=== PATIENT | female | born 1945 | race Caucasian/White ===

== ENCOUNTER 2017-11-17 12:00 | Inpatient (IN) ==
[2017-11-17] MEDS ORDERED: Ipratropium/Albuterol Neb 3 ML IH ONE (12:22)
--- NOTE | 2017-11-17 12:24 | Emergency Department Note ---
Disposition Clinical Impression: Weakness, COPD (chronic obstructive pulmonary disease), Elevated troponin Disposition: Admitted As Inpatient Condition: Fair Time of Disposition: 14:30 General Adult HPI - General Chief complaint: ED Weakness Stated complaint: weakness Time Seen by Provider: 11/17/17 12:04 Source: patient Limitations: no limitations Nursing Notes Reviewed: Yes Vital Signs Reviewed: Yes - History of Present Illness HPI Narrative: Patient is a 72-year-old female with history of CVA, COPD, DVT, [place] presents to the emergency department via EMS With complaints of weakness and dyspnea on exertion which began this morning. She states that she was attempting to walk approximately 10 feet and felt so short of breath she was not able to make it. She states she has oxygen at home for use but does not use it and did not try it today. She admits to a fall a few days ago with significant bruising to her legs and back and is now complaining of right foot pain. She lives at home with her significant other who is not present She otherwise denies any fever, chills, chest pain, cough, nausea, vomiting, diarrhea, dysuria, hematuria, melena, abdominal pain. Pain Scale: 0 - Related Data Home Medications Medication Instructions Recorded Confirmed Amlodipine Besylate 2.5 mg PO DAILY 02/27/17 02/27/17 Atorvastatin [Lipitor] 40 mg PO HS 02/27/17 02/27/17 BuPROPion XL (24 HR) [Wellbutrin 150 mg PO DAILY 02/27/17 02/27/17 XL] Clopidogrel [Plavix] 75 mg PO DAILY 02/27/17 02/27/17 Donepezil HCl [Aricept] 5 mg PO HS 02/27/17 02/27/17 Furosemide [Lasix] 20 mg PO DAILY 02/27/17 02/27/17 HYDROcodone/Acet 5/325 mg [[place] 1 tab PO BID PRN 02/27/17 02/27/17 5-325 mg] Losartan Potassium [Cozaar] 100 mg PO DAILY 02/27/17 02/27/17 Metoprolol [Lopressor] 25 mg PO BID 02/27/17 02/27/17 Rivaroxaban [Xarelto] 20 mg PO HS 02/27/17 02/27/17 Allergies Allergy/AdvReac Type Severity Reaction Status Date / Time Penicillins [PCN] AdvReac See Verified 02/27/17 11:54 Comments Constitutional: Reports: weakness. Denies: fever, chills, weight change Eyes: Denies: vision change Cardiovascular: Reports: dyspnea on exertion. Denies: chest pain, palpitations , edema, syncope Respiratory: Reports: dyspnea. Denies: cough, wheezes, hemoptysis Gastrointestinal: Denies: abdominal pain, nausea, vomiting, diarrhea, constipation, melena Genitourinary: Denies: dysuria, hematuria Musculoskeletal: Reports: other (right foot pain) Integumentary: Reports: other (bruising on left hip and legs) Neurological: Reports: weakness. Denies: headache, numbness, paresthesias Endocrine: Reports: fatigue Past Medical History - Past Medical History Source: patient Medical history: Reports: CVA, DVT, hyperlipidemia, hypertension, myocardial infarction Surgical history: Reports: no surgical history Psychiatric history: Reports: no psych history - Social History Smoking Status: Current every day smoker Smokeless Tobacco Status: No Alcohol use: Reports: none Drug use: Reports: none Physical Exam She is awake and alert and able to speak in full sentences. Her pulse ox is 98 % on room air but when she rolls to her right side drops to 80%. - General Limitations: no limitations General appearance: alert, in no apparent distress - Head Head exam: atraumatic, normocephalic - Eye Eye exam: Present: normal appearance, EOMI - ENT ENT exam: normal exam, normal oropharynx, mucous membranes moist - Neck Neck exam: Present: normal inspection, full ROM, trachea midline - Chest Chest inspection: Present: normal inspection, symmetric chest wall rise - Expanded Respiratory Exam Location: wheezes: Right, Left, rhonchi: Left, Right, Upper, Lower (Personal) - Cardiovascular Cardiovascular exam: Present: irregular rhythm, normal heart sounds - Abdominal Exam Abdominal exam: Present: soft, Non-Tender. Absent: distention, guarding, rebound - Extremities Exam Extremities exam: Absent: pedal edema - Expanded Lower Extremity Exam Hip/Pelvis exam: Present: ecchymosis (Left posterior hip) Upper leg exam: Present: ecchymosis (Right medial thigh, 3 cm linear contusion) Foot/toe exam: Present: tenderness - Back Exam Back exam: Present: normal inspection. Absent: CVA tenderness (R), CVA tenderness (L) - Neurological Exam Neurological exam: Present: alert, oriented X3 - Psychiatric Psychiatric exam: Present: normal mood, other - Skin Skin exam: Present: warm, dry, intact (blunted affect) Course - Reevaluation(s) Time: 14:30 Vital Signs Temperature 98.2 F 11/17/17 12:05 Pulse Rate 56 11/17/17 12:05 Respiratory Rate 18 11/17/17 12:05 Blood Pressure 107/69 11/17/17 12:05 O2 Sat by Pulse Oximetry 96 11/17/17 12:05 Temperature 98.2 F 11/17/17 12:05 Pulse Rate 63 11/17/17 14:55 Respiratory Rate 18 11/17/17 14:55 Blood Pressure 116/97 11/17/17 14:55 O2 Sat by Pulse Oximetry 100 11/17/17 12:55 Oxygen Delivery Oxygen Delivery Room Air Medical Decision Making - MDM Narrative Medical decision making narrative: Vision significant medical history and being a poor historian due to CVA with residual dementia the patient will require significant workup. CBC CMP, troponin, chest x-ray, right foot x-ray, CT head UA will be ordered. This is likely an exacerbation of her COPD for which she may be an unreliable and noncompliant patient as she does not mitts at taking any medications. 1:10 PM: is her daughter and POA. She called and the see how her mom is doing. She states that she this sounds a lot like her previous. She has a lot of issues with degenerative joint disease in her neck and low back and often has pain control issues. I tort and seemed to be the issue today it seemed a more of a COPD exacerbation. She says it does not surprise her she is fairly noncompliant with her medications" looks like a chimney". She states that she was also has significant dementia with probable Alzheimer's periods they have had her on Namenda before now that at 3 Medications on top of all which are psychiatric meds. One includes valproic acid saga level of that along with checking LFTs and ammonia level. Daughter states she like to be called once every thing is back and she thought from that what we have described unless something is new that she will probably go to go home since physical therapy and home health care for her also. Chest X-Ray 11/17/17 12:22 IMPRESSION: No acute findings D/ / Heather Friedman MD / Heather Friedman MD Interpreting Provider: Heather Friedman MD Foot X-Ray 11/17/17 12:27 IMPRESSION: 1st MTP degenerative changes. D/ / Heather Friedman MD / Heather Friedman MD Interpreting Provider: Heather Friedman MD 1400 hrs.: No fracture on her foot x-ray shows some degenerative changes and also on chest x-rays negative. She did complain of some intermittent chest pains we did get a troponin at 0.04 but has no signs of ischemia. We will go head once her CT is back that negative we will start an aspirin and then we will bring her into the hospital. Impression is dementia chronic COPD and chest pain rule out ACS. Chest X-Ray 11/17/17 12:22 IMPRESSION: No acute findings D/ / Heather Friedman MD / Heather Friedman MD Interpreting Provider: Heather Friedman MD Head CT 11/17/17 12:22 IMPRESSION: No acute intracranial abnormality. D/ / Mark Sanchez MD / Mark Sanchez MD Interpreting Provider: Mark Sanchez MD Foot X-Ray 11/17/17 12:27 IMPRESSION: 1st MTP degenerative changes. D/ / Heather Friedman MD / Heather Friedman MD Interpreting Provider: Heather Friedman MD Patient's initial presentation of weakness and dyspnea on exertion was consistent with a COPD exacerbation. Patient's daughter states that this is her baseline and given her dementia she is unable to decipher any new changes. Given her unreliable history CBC, CMP, troponin, chest x-ray, CT head, UA were obtained. After discussion with the daughter valproic acid and acetaminophen were ordered. Chest x-ray was unremarkable. CMP significant for sodium 131 troponin 0.04. Valproate low at 38. She presentation seemed to be consistent with her baseline the elevated troponin made it necessary to admit the patient for trending and continued close care. Patient is admitted under Dr. Valadez. - Medical Records Medical records reviewed: Yes I reviewed the patient's medical records. - Lab Data Lab results reviewed: Yes I reviewed the patient's lab results. Result diagrams: 11/17/17 12:33 11/17/17 12:33 Lab Results 11/17/17 11/17/17 11/17/17 Range/Units 12:33 12:33 12:54 WBC 4.9 (4.3-11.1) K/mcL RBC 4.29 (3.82-4.97) M/mcL Hgb 13.6 (11.5-15.4) g/dL Hct 38.4 (35.3-44.9) % MCV 89.5 (83.0-100.0) fL MCH 31.7 (28.0-33.3) pg MCHC 35.4 (31.6-35.5) g/dL RDW 14.7 H (11.5-14.5) % Plt Count 187 (140-400) K/mcL MPV 11.8 (9.4-12.4) fL Immature Gran % 0.2 (0-4) % Seg Neutrophils % 66.5 % Lymphocytes % 22.9 % Monocytes % 8.6 % Eosinophils % 1.2 % Basophils % 0.6 % Neutrophils # 3.3 (1.6-8.9) K/mcL Lymphocytes # 1.1 (0.6-4.6) K/mcL Monocytes # 0.4 (0.0-1.3) K/mcL Eosinophils # 0.1 (0.0-0.6) K/mcL Basophils # 0.0 (0.0-0.2) K/mcL Sodium 131 L (136-145) mEq/L Potassium 4.0 (3.5-5.1) mEq/L Chloride 91 L (98-107) mEq/L Carbon Dioxide 31 H (23-29) mEq/L BUN 5 L (8-23) mg/dL Creatinine 0.75 (0.60-1.20) mg/dL Est GFR ( Amer) > 60 (> 60) Est GFR (Non-Af Amer) > 60 (> 60) BUN/Creatinine Ratio 7 (6-26) Glucose 84 (70-105) mg/dL Calculated Osmolality 268 L (280-300) Calcium 9.4 (8.6-10.3) mg/dL Total Bilirubin 0.5 (0.3-1.0) mg/dL Direct Bilirubin 0.2 (0.0-0.2) mg/dL Indirect Bilirubin 0.3 (0.0-1.2) mg/dL AST 25 (13-39) Units/L ALT 8 (7-52) Units/L Alkaline Phosphatase 100 (34-104) Units/L Ammonia (16-53) mcmol/L Troponin I 0.04 H* (< 0.04) ng/mL Serum Total Protein 7.1 (6.4-8.9) g/dL Albumin 3.9 (3.5-5.7) g/dL Globulin 3.2 (2.4-3.5) g/dL Albumin/Globulin Ratio 1.2 (1.1-2.2) Urine Color Yellow (Yellow) Urine Clarity Clear (Clear) Urine pH 6.5 (5.0-8.0) pH Units Ur Specific [place] 1.006 L (1.010-1.025) Urine Protein Negative (Neg-Trace) mg/dL Urine Glucose (UA) Normal (Normal) mg/dL Urine Ketones Negative (Negative) mg/dL Urine Blood Negative (Negative) Urine Nitrite Negative (Negative) Urine Bilirubin Negative (Negative) Urine Urobilinogen Normal (Normal) mg/dL Ur Leukocyte Esterase Negative (Negative) Ur Culture Indicated? NO (NO) Acetaminophen < 10 L (10-20) mcg/mL Valproic Acid 38 L (50-100) mcg/mL 11/17/17 Range/Units 13:19 WBC (4.3-11.1) K/mcL RBC (3.82-4.97) M/mcL Hgb (11.5-15.4) g/dL Hct (35.3-44.9) % MCV (83.0-100.0) fL MCH (28.0-33.3) pg MCHC (31.6-35.5) g/dL RDW (11.5-14.5) % Plt Count (140-400) K/mcL MPV (9.4-12.4) fL Immature Gran % (0-4) % Seg Neutrophils % % Lymphocytes % % Monocytes % % Eosinophils % % Basophils % % Neutrophils # (1.6-8.9) K/mcL Lymphocytes # (0.6-4.6) K/mcL Monocytes # (0.0-1.3) K/mcL Eosinophils # (0.0-0.6) K/mcL Basophils # (0.0-0.2) K/mcL Sodium (136-145) mEq/L Potassium (3.5-5.1) mEq/L Chloride (98-107) mEq/L Carbon Dioxide (23-29) mEq/L BUN (8-23) mg/dL Creatinine (0.60-1.20) mg/dL Est GFR ( Amer) (> 60) Est GFR (Non-Af Amer) (> 60) BUN/Creatinine Ratio (6-26) Glucose (70-105) mg/dL Calculated Osmolality (280-300) Calcium (8.6-10.3) mg/dL Total Bilirubin (0.3-1.0) mg/dL Direct Bilirubin (0.0-0.2) mg/dL Indirect Bilirubin (0.0-1.2) mg/dL AST (13-39) Units/L ALT (7-52) Units/L Alkaline Phosphatase (34-104) Units/L Ammonia 26 (16-53) mcmol/L Troponin I (< 0.04) ng/mL Serum Total Protein (6.4-8.9) g/dL Albumin (3.5-5.7) g/dL Globulin (2.4-3.5) g/dL Albumin/Globulin Ratio (1.1-2.2) Urine Color (Yellow) Urine Clarity (Clear) Urine pH (5.0-8.0) pH Units Ur Specific [place] (1.010-1.025) Urine Protein (Neg-Trace) mg/dL Urine Glucose (UA) (Normal) mg/dL Urine Ketones (Negative) mg/dL Urine Blood (Negative) Urine Nitrite (Negative) Urine Bilirubin (Negative) Urine Urobilinogen (Normal) mg/dL Ur Leukocyte Esterase (Negative) Ur Culture Indicated? (NO) Acetaminophen (10-20) mcg/mL Valproic Acid (50-100) mcg/mL - Radiology Data Radiology results reviewed: Yes I reviewed the patient's radiology results. Chest X-Ray 11/17/17 12:22 IMPRESSION: No acute findings D/ / Heather Friedman MD / Heather Friedman MD Interpreting Provider: Heather Friedman MD Head CT 11/17/17 12:22 IMPRESSION: No acute intracranial abnormality. D/ / Mark Sanchez MD / Mark Sanchez MD Interpreting Provider: Mark Sanchez MD Foot X-Ray 11/17/17 12:27 IMPRESSION: 1st MTP degenerative changes. D/ / Heather Friedman MD / Heather Friedman MD Interpreting Provider: Heatehr Friedman MD - EKG Data EKG #1 EKG attestation: Yes I reviewed and interpreted this EKG. EKG results narrative: Atrial fibrillation rate of 56. QRS 68. QTC 441. QTC 433. Normal axis. Inverted T waves in aVR, V1, V2. Attestation Statement - Attestation Attestation: This documentation is done with the assistance of Dragon dictation. Despite efforts made to ensure accuracy, there may be inaccuracies in billing services manager or spelling and typographical errors. I examined this patient and my medical decision-making was reviewed with the Resident Physician. I agree with the documented findings, disposition and treatment plan as described except to the extent set forth below. Patient seen and evaluated on arrival by Dr. Regalado and myself, I agree with her evaluation and management plan, supervise care the patient's stay. Patient comes from home from EMS she has been feeling weak was able to ambulate inside. She does have history of COPD. She had some bruising on her and she says that she is not on blood thinners but later we find out she is on several toe. She has had a couple falls. She also has pain in her right foot which when image CT her head x-ray were chest and she has as coarse respirations and cough. Most likely she will need admission. The family will, and we can get more history from them and we will involve social work instructor also. Patient's agreement with this plan.
[2017-11-17 13:13] LABS: Bilirubin,Urine Negative (Negative); Blood,Urine Negative (Negative); Clarity,Urine Clear (Clear); Color,Urine Yellow (Yellow); Glucose,Urine (UA) Normal (Normal); Ketones,Urine Negative (Negative); Leukocyte Esterase,Urine Negative (Negative); Nitrite,Urine Negative (Negative); PH,Urine 6.5 pH Units (5.0-8.0); Protein,Urine Negative (Neg-Trace); Specific Gravity,Urine 1.006 (1.010-1.025); Urobilinogen,Urine Normal (Normal)
[2017-11-17 13:14] LABS: Basophils % 0.6 %; Eosinophils # 0.1 K/mcL (0.0-0.6); Eosinophils % 1.2 %; Hematocrit 38.4 % (35.3-44.9); Hemoglobin 13.6 g/dL (11.5-15.4); Immature Granulocytes % 0.2 % (0-4); Lymphocytes # 1.1 K/mcL (0.6-4.6); Lymphocytes % 22.9 %; Mean Corpuscular HGB Conc 35.4 g/dL (31.6-35.5); Mean Corpuscular Hemoglobin 31.7 pg (28.0-33.3); Mean Corpuscular Volume 89.5 fL (83.0-100.0); Mean Platelet Volume 11.8 fL (9.4-12.4); Monocytes # 0.4 K/mcL (0.0-1.3); Monocytes % 8.6 %; Neutrophils # 3.3 K/mcL (1.6-8.9); Platelet Count 187 K/mcL (140-400); Red Blood Count 4.29 M/mcL (3.82-4.97); Red Cell Distribution Width 14.7 % (11.5-14.5); Segmented Neutrophils % 66.5 %
[2017-11-17 13:28] LABS: Troponin I 0.04 ng/mL (< 0.04)
[2017-11-17] MEDS ORDERED: Aspirin 81 MG TAB.CHEW PO STA (13:28)
[2017-11-17 13:42] LABS: Acetaminophen < 10 mcg/mL (10-20); Alanine Aminotransferase 8 Units/L (7-52); Albumin 3.9 g/dL (3.5-5.7); Albumin/Globulin Ratio 1.2 (1.1-2.2); Alkaline Phosphatase 100 Units/L (34-104); Aspartate Amino Transferase 25 Units/L (13-39); BUN/Creatinine Ratio 7 (6-26); Bilirubin,Direct 0.2 mg/dL (0.0-0.2); Bilirubin,Indirect 0.3 mg/dL (0.0-1.2); Bilirubin,Total 0.5 mg/dL (0.3-1.0); Blood Urea Nitrogen 5 mg/dL (8-23); Calcium 9.4 mg/dL (8.6-10.3); Carbon Dioxide 31 mEq/L (23-29); Chloride 91 mEq/L (98-107); Globulin 3.2 g/dL (2.4-3.5); Glucose 84 mg/dL (70-105); Osmolality,Calculated 268 (280-300); Sodium 131 mEq/L (136-145); Total Protein 7.1 g/dL (6.4-8.9); Valproate 38 mcg/mL (50-100); eGFR For African Americans > 60 (> 60); eGFR For Non-African Americans > 60 (> 60)
[2017-11-17] MEDS ORDERED: Aspirin 81 MG TAB.CHEW ONE (14:37)
[2017-11-17] MEDS: Aspirin 81 MG TAB.CHEW PO STA ×2 (17:08→17:19)
--- NOTE | 2017-11-17 17:23 | Internal Med History&Physical ---
Date of Encounter: 11/17/17 Time of Encounter: 17:23 Internal Medicine - H&P: HPI Chief complaint: Shortness of breath History of present illness: 72-year-old female with history of CVA, COPD, DVT, [place] presents to the emergency department via EMS With complaints of weakness and dyspnea on exertion which began this morning. She states that she was attempting to walk approximately 10 feet and felt so short of breath she was not able to make it. She states she has oxygen at home for use but does not use it and did not try it today. She admits to a fall a few days ago with significant bruising to her legs and back and is now complaining of right foot pain. She lives at home with her significant other who is not present She otherwise denies any fever, chills, chest pain, cough, nausea, vomiting, diarrhea, dysuria, hematuria, melena, abdominal pain. Past Med Surg Social Fam HX - Past Medical History Medical history: COPD, CVA, DVT, dementia, hyperlipidemia, hypertension, myocardial infarction Psychiatric history: no psych history - Past Surgical History Surgical History: no surgical history - Social History Smoking Status: Current every day smoker Packs per day: 1/2 Smokeless Tobacco Status: No Alcohol use: none Drug use: none Internal Medicine - H&P: Meds Amlodipine Besylate 2.5 mg PO DAILY 02/27/17 [History] Atorvastatin [Lipitor] 40 mg PO HS 02/27/17 [History] BuPROPion XL (24 HR) [Wellbutrin XL] 150 mg PO DAILY 02/27/17 [History] Clopidogrel [Plavix] 75 mg PO DAILY 02/27/17 [History] Donepezil HCl [Aricept] 5 mg PO HS 02/27/17 [History] Furosemide [Lasix] 20 mg PO DAILY 02/27/17 [History] HYDROcodone/Acet 5/325 mg [[place] 5-325 mg] 1 tab PO DAILY PRN 02/27/17 [History] Losartan Potassium [Cozaar] 100 mg PO DAILY 02/27/17 [History] Metoprolol [Lopressor] 25 mg PO BID 02/27/17 [History] Rivaroxaban [Xarelto] 20 mg PO HS 02/27/17 [History] Divalproex Sodium [Depakote] 125 mg PO BID 11/17/17 [History] Escitalopram [Lexapro] 10 mg PO DAILY 11/17/17 [History] Memantine [Namenda] 5 mg PO BID 11/17/17 [History] OLANZapine [Zyprexa] 5 mg PO DAILY 11/17/17 [History] Potassium Chloride [K-Tab ER] 20 meq PO DAILY 11/17/17 [History] 3 Allergy/AdvReac Type Severity Reaction Status Date / Time aspirin AdvReac See Verified 11/17/17 17:36 Comments Penicillins [PCN] AdvReac See Verified 02/27/17 11:54 Comments All Systems PM: A 10-system review of systems was performed and is negative for pertinent findings except as documented above in the HPI. - Constitutional Vitals: Temp Pulse Resp BP Pulse Ox 98.0 F 73 18 131/91 97 11/17/17 15:36 11/17/17 15:36 11/17/17 15:36 11/17/17 15:36 11/17/17 16:15 Internal Med - H&P Results - Labs CBC & Chem 7: 11/17/17 12:33 11/17/17 12:33 - Assessment and plan (1) Elevated troponin Current Visit: Yes Status: Acute (2) COPD (chronic obstructive pulmonary disease) Current Visit: Yes Status: Acute Assessment and plan: ASSESSMENT: - Chest pain DD *CAD *Muskuloskeletal CP - myofascial strain, costochondritis *GERD *Esophageal spasm PLAN: - cardiac enzymes x 2 q 8 hr - EKG now and in AM - ASA - O2 by NC to keep SpO2 greater than 92% - UA - Urine toxic screen - CBCD, BMP in AM - Fasting lipids - Tylenol 650 mg PO q 4-6 hr PRN headache - Heparin 5000 U SQ BID - 2D Echo - Cardiology consult (3) Hyponatremia Current Visit: Yes Status: Acute (4) DVT prophylaxis Current Visit: Yes Status: Acute - Time Spent With Patient Total time spent is greater than 50% in coordination of care (as documented) at patient's floor/unit and/or counseling patient:
[2017-11-17] MEDS ORDERED: *HR* HYDROcodone/Acet 5/325 mg TABLET PO PRN (17:24)
[2017-11-17] MEDS ORDERED: Acetaminophen 325 MG TABLET PO PRN (17:36)
[2017-11-17] MEDS ORDERED: Naloxone 0.4 MG/ML INJ IVP PRN (17:36)
[2017-11-17] MEDS ORDERED: traMADol 50 MG TABLET PO PRN (17:36)
[2017-11-17] MEDS ORDERED: *HR* OxyCODONE Immed Rel 5 MG TABLET PO PRN (17:36)
--- NOTE | 2017-11-17 17:52 | Electrocardiograph Report ---
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
[2017-11-17] MEDS: *HR* Rivaroxaban 10 MG TABLET PO SCH (20:27)
[2017-11-17] MEDS: Divalproex Sodium 125 MG CAPSULE PO SCH (20:27)
[2017-11-18 01:41] LABS: Prothrombin Time 33.9 Seconds (9.4-12.1)
[2017-11-18 01:44] LABS: Activated Partial Thrombo Time 38.5 Seconds (26.0-36.0)
[2017-11-18 01:55] LABS: Alanine Aminotransferase 7 Units/L (7-52); Albumin 3.2 g/dL (3.5-5.7); Albumin/Globulin Ratio 1.2 (1.1-2.2); Alkaline Phosphatase 79 Units/L (34-104); Aspartate Amino Transferase 22 Units/L (13-39); BUN/Creatinine Ratio 12 (6-26); Bilirubin,Total 0.5 mg/dL (0.3-1.0); Blood Urea Nitrogen 9 mg/dL (8-23); Carbon Dioxide 28 mEq/L (23-29); Chloride 94 mEq/L (98-107); Chol/HDL Ratio 2.5 (0-4.9); Cholesterol 109 mg/dL (< 200); Globulin 2.6 g/dL (2.4-3.5); Glucose 82 mg/dL (70-105); HDL Cholesterol 43 mg/dL (40-59); LDL Cholesterol,Calculated 45 mg/dL (0-99); Magnesium 1.8 mg/dL (1.6-2.6); Osmolality,Calculated 268 (280-300); Phosphorous 3.7 mg/dL (2.7-4.5); Potassium 3.6 mEq/L (3.5-5.1); Sodium 130 mEq/L (136-145); Total Protein 5.8 g/dL (6.4-8.9); Triglycerides 103 mg/dL (< 150); eGFR For African Americans > 60 (> 60); eGFR For Non-African Americans > 60 (> 60)
[2017-11-18 02:35] LABS: Hematocrit 33.4 % (35.3-44.9); Mean Corpuscular HGB Conc 34.4 g/dL (31.6-35.5); Mean Corpuscular Volume 87.2 fL (83.0-100.0); Mean Platelet Volume 11.6 fL (9.4-12.4); Platelet Count 162 K/mcL (140-400); Red Blood Count 3.83 M/mcL (3.82-4.97); Red Cell Distribution Width 14.8 % (11.5-14.5)
[2017-11-18 02:38] LABS: Hemoglobin 11.5 g/dL (11.5-15.4)
[2017-11-18] MEDS: Ipratropium/Albuterol Neb 3 ML IH SCH ×4 (08:12→19:40)
[2017-11-18] MEDS: Furosemide 20 MG TABLET PO SCH (09:54)
[2017-11-18] MEDS: Divalproex Sodium 125 MG CAPSULE PO SCH ×2 (09:54→21:26)
[2017-11-18] MEDS: OLANZapine 5 MG TAB.RAPDIS PO SCH (09:54)
--- NOTE | 2017-11-18 13:26 | Internal Med Progress Note ---
Date of Encounter: 11/18/17 Time of Encounter: 10:30 - Assessment and plan (1) Chest pain Current Visit: Yes Status: Acute Assessment and plan: Per H&P, patient had chest pain. Currently denies any chest pain. Troponins every day and awake and stable. Awaiting 2-D echocardiogram. Qualifiers: Chest pain type: precordial pain Qualified Code(s): R07.2 - Precordial pain (2) COPD (chronic obstructive pulmonary disease) Current Visit: Yes Status: Chronic Assessment and plan: Continue bronchodilators. O2 supplementation as needed. Qualifiers: COPD type: chronic bronchitis Chronic bronchitis type: simple Qualified Code(s): J41.0 - Simple chronic bronchitis (3) Elevated troponin Current Visit: Yes Status: Acute Assessment and plan: Mild elevation in troponin. Adynamic. Awaiting echocardiogram. (4) Hyponatremia Current Visit: Yes Status: Chronic Assessment and plan: Likely hypovolemic hyponatremia. No prior labs available here. Will start IV fluids. Monitor sodium levels. (5) DVT prophylaxis Current Visit: Yes Status: Acute Assessment and plan: Continue Xarelto (6) Constipation Current Visit: Yes Status: Acute Assessment and plan: Place patient on senna/docusate. Qualifiers: Constipation type: slow transit constipation Qualified Code(s): K59.01 - Slow transit constipation - Time Spent With Patient Total time spent is greater than 50% in coordination of care (as documented) at patient's floor/unit and/or counseling patient: - Subjective Interval history: Patient is lying in bed. Does have underlying dementia and is not troubled to provide much history. Denies any chest pain or shortness of breath at this time. Does report constipation. No abdominal pain. - Constitutional Vitals: Temp Pulse Resp BP Pulse Ox 97.8 F 69 16 99/57 99 11/18/17 10:35 11/18/17 10:35 11/18/17 11:07 11/18/17 10:35 11/18/17 11:07 General appearance: Present: cooperative, A&O X 1, answers questions appropriately - Neck Neck exam general surgery: Present: supple, trachea midline. Absent: lymphadenopathy - Respiratory Respiratory exam: Present: CTAB. Absent: accessory muscle use, rales, rhonchi, wheezes - Cardiovascular Cardiovascular exam: Present: RRR, +S1, +S2. Absent: diastolic murmur, gallop, rubs, systolic murmur - Extremities Exam Extremities exam: Present: warm, radial pulses palpable and symmetrical. Absent : calf tenderness, cyanotic, pedal edema Internal Medicine: Result - Labs CBC & Chem 7: 11/18/17 02:11 11/18/17 00:42 Labs: Short CBC 11/18/17 Range/Units 02:11 WBC 4.8 (4.3-11.1) K/mcL Hgb 11.5 D (11.5-15.4) g/dL Hct 33.4 L (35.3-44.9) % Plt Count 162 (140-400) K/mcL BMP 11/18/17 00:42 Sodium 130 L Potassium 3.6 Chloride 94 L Carbon Dioxide 28 BUN 9 Creatinine 0.76 Glucose 82 Calcium 9.0 Cardiac Enzymes 11/17/17 11/18/17 11/18/17 Range/Units 18:21 00:42 02:11 Troponin I 0.04 H* 0.04 H* 0.04 H* (< 0.04) ng/mL 11/18/17 Range/Units 08:08 Troponin I 0.04 H* (< 0.04) ng/mL Liver Function 11/18/17 Range/Units 00:42 Total Bilirubin 0.5 (0.3-1.0) mg/dL AST 22 (13-39) Units/L ALT 7 (7-52) Units/L Alkaline Phosphatase 79 (34-104) Units/L Albumin 3.2 L (3.5-5.7) g/dL - ABG Interpretation ABG results: PT/INR, D-dimer PT 33.9 Seconds (9.4-12.1) H 11/18/17 00:42 Consult Discharge Plan - Plan Referrals: Allyson Bernstein MD [Primary Care Provider] -
--- NOTE | 2017-11-18 14:19 | Cardiology Consult Note ---
Date of Encounter: 11/18/17 Time of Encounter: 15:45 Assessment and Plan (1) Chest pain Current Visit: Yes Status: Acute Currently denies any chest pain and is unable to provide any history of her episodes of chest pain. Low-level adynamic troponin of 0.04. Consider noninvasive risk stratification. We will attempt to discuss further with family members when present Qualifiers: Chest pain type: precordial pain Qualified Code(s): R07.2 - Precordial pain (2) Elevated troponin Current Visit: Yes Status: Acute Borderline elevated noninvasive risk stratification likely recommended especially in the setting of a poor historian (3) Abnormal EKG Current Visit: Yes Status: Acute Possible irregular irregular rhythm noted on EKG. Possibly coarse atrial fibrillation as some P waves are evident however there is artifact on EKG. We will monitor telemetry and follow-up with serial EKGs during hospital stay. Patient currently on Plavix possibly for peripheral artery disease as per patient. Her recent fall and dementia may pose a risk for bleeding on anticoagulation. We will ask PT/OT to assess risk of fall Discussion w patient/family: The assessment and plan as outlined above was discussed with the patient and/or family members who expressed understanding and agreement. All questions were answered. Thank you for involving us in the care of your patient. Please call with any questions. History of Present Illness Consult date: 11/18/17 Consult reason: Chest Pain Chief complaint: Chest Pain History of present illness: Ms. Yusuf is a 72 year old female with h/o CVA, COPD, DVTs, PAD who presents with complaints of weakness and dyspnea on exertion according to documentation. Patient is a poor historian and on questioning is unsure why she is here in the hospital. She has a history of dementia and there are no family members present at this time. She currently denies any chest pain, shortness of breath, orthopnea, PND, presyncope or syncope. On documentation she had a fall a few days ago currently on antiplatelet therapy for presumed peripheral artery disease. Also the emergency department documented that she is short of breath with exertion and does not wear her home oxygen. No further records available to review at this time. There is a troponin of 0.04 adynamic with possible atrial fibrillation on her EKG. The EKG has artifact and therefore is not definitive we will follow her telemetry and repeat EKGs Past Med Surg Social Fam HX - Past Medical History Medical history: COPD, CVA, DVT, dementia, hyperlipidemia, hypertension, myocardial infarction Psychiatric history: no psych history - Past Surgical History Surgical History: no surgical history - Social History Smoking Status: Current every day smoker Packs per day: 1/2 Smokeless Tobacco Status: No Alcohol use: none Drug use: none Medications and Allergies Amlodipine Besylate 2.5 mg PO DAILY 02/27/17 [History] Atorvastatin [Lipitor] 40 mg PO HS 02/27/17 [History] BuPROPion XL (24 HR) [Wellbutrin XL] 150 mg PO DAILY 02/27/17 [History] Clopidogrel [Plavix] 75 mg PO DAILY 02/27/17 [History] Donepezil HCl [Aricept] 5 mg PO HS 02/27/17 [History] Furosemide [Lasix] 20 mg PO DAILY 02/27/17 [History] HYDROcodone/Acet 5/325 mg [Sunray 5-325 mg] 1 tab PO DAILY PRN 02/27/17 [History] Losartan Potassium [Cozaar] 100 mg PO DAILY 02/27/17 [History] Metoprolol [Lopressor] 25 mg PO BID 02/27/17 [History] Rivaroxaban [Xarelto] 20 mg PO HS 02/27/17 [History] Divalproex Sodium [Depakote] 125 mg PO BID 11/17/17 [History] Escitalopram [Lexapro] 10 mg PO DAILY 11/17/17 [History] Memantine [Namenda] 5 mg PO BID 11/17/17 [History] OLANZapine [Zyprexa] 5 mg PO DAILY 11/17/17 [History] Potassium Chloride [K-Tab ER] 20 meq PO DAILY 11/17/17 [History] 3 Allergy/AdvReac Type Severity Reaction Status Date / Time aspirin AdvReac See Verified 11/17/17 17:36 Comments Penicillins [PCN] AdvReac See Verified 02/27/17 11:54 Comments All Systems Review: The remainder of the systems were reviewed and are negative Physical Examination Vital Signs, Last 4 Hours Temp Pulse Resp BP Pulse Ox 11/18/17 11:07 16 99 11/18/17 10:35 97.8 F 69 16 99/57 98 General: Conversant, No Apparent Distress HEENT: Atraumatic, Normocephaly, Mucus Membranes Moist Neck: No JVD, Normal carotid pulses Cardiac: Reg Rate and Rhythm, Normal S1 and S2, No Murmur Lungs: Normal Breath Sounds, No Wheeze, Rales, Rhonchi Neuro: Alert and responsive, No focal deficits noted Abdomen: Soft, Non-Tender Skin: No rashes noted on visualized skin Musculoskeletal: No Chest Wall Tenderness Extremities: No Clubbing, No Cyanosis, No Edema, Normal Pulses Results 11/18/17 02:11 11/18/17 00:42 Lab Results 11/17/17 11/18/17 11/18/17 18:21 00:42 00:42 WBC Hgb Hct Plt Count INR 3.0 APTT 38.5 H Sodium Potassium Chloride Carbon Dioxide BUN Creatinine Glucose Calcium Magnesium Total Bilirubin AST ALT Alkaline Phosphatase Troponin I 0.04 H* 0.04 H* B-Natriuretic Peptide 11/18/17 11/18/17 11/18/17 00:42 00:42 02:11 WBC Hgb Hct Plt Count INR APTT Sodium 130 L Potassium 3.6 Chloride 94 L Carbon Dioxide 28 BUN 9 Creatinine 0.76 Glucose 82 Calcium 9.0 Magnesium 1.8 Total Bilirubin 0.5 AST 22 ALT 7 Alkaline Phosphatase 79 Troponin I 0.04 H* B-Natriuretic Peptide 146 H 11/18/17 11/18/17 02:11 08:08 WBC 4.8 Hgb 11.5 D Hct 33.4 L Plt Count 162 INR APTT Sodium Potassium Chloride Carbon Dioxide BUN Creatinine Glucose Calcium Magnesium Total Bilirubin AST ALT Alkaline Phosphatase Troponin I 0.04 H* B-Natriuretic Peptide Consult Discharge Plan - Plan Referrals: Allyson Bernstein MD [Primary Care Provider] -
[2017-11-18] MEDS: Sennosides/Docusate Sodium TABLET PO SCH ×2 (14:47→21:26)
[2017-11-18] MEDS: 0.9 % Sodium Chloride 1,000 ML IVC SCH (14:47)
[2017-11-18] MEDS: *HR* Rivaroxaban 10 MG TABLET PO SCH (21:26)
[2017-11-19] MEDS: Ipratropium/Albuterol Neb 3 ML IH SCH ×6 (00:11→20:50)
[2017-11-19] MEDS: 0.9 % Sodium Chloride 1,000 ML IVC SCH ×2 (06:43→23:19)
[2017-11-19] MEDS: OLANZapine 5 MG TAB.RAPDIS PO SCH (09:52)
[2017-11-19] MEDS: Divalproex Sodium 125 MG CAPSULE PO SCH ×2 (09:52→20:57)
[2017-11-19] MEDS: Sennosides/Docusate Sodium TABLET PO SCH ×2 (09:52→20:57)
[2017-11-19] MEDS: Furosemide 20 MG TABLET PO SCH (09:52)
[2017-11-19 11:12] LABS: BUN/Creatinine Ratio 11 (6-26); Blood Urea Nitrogen 9 mg/dL (8-23); Calcium 8.6 mg/dL (8.6-10.3); Carbon Dioxide 29 mEq/L (23-29); Chloride 99 mEq/L (98-107); Glucose 127 mg/dL (70-105); Osmolality,Calculated 280 (280-300); Potassium 3.5 mEq/L (3.5-5.1); Sodium 135 mEq/L (136-145); eGFR For African Americans > 60 (> 60); eGFR For Non-African Americans > 60 (> 60)
--- NOTE | 2017-11-19 12:55 | Cardiology Progress Note ---
Date of Encounter: 11/19/17 Time of Encounter: 12:15 Assessment and Plan (1) Elevated troponin Current Visit: Yes Status: Acute Per Cardiology: Troponins 0.045, flat and adynamic. Patient with history of dementia and lessening symptoms somewhat challenging. Alert and oriented 3 today, denies any chest pain. Echo showed EF preserved, NSWMA. No family available or present to discuss potential further ischemic evaluation. We will discuss and review Dr. Cabrera further inpatient ischemic evaluation versus possible outpatient evaluation. (2) Anticoagulant long-term use Current Visit: Yes Status: Acute Per Cardiology: Apparent history of DVT and CVA. Appears to be on Xarelto 20mg PO daily. ECG and telemetry strips reviewed with Dr. Cabrera, appears to be sinus rhythm with PACs, however poor tracings and atrial for atrial fibrillation cannot be excluded. Regardless, patient is rate controlled and already on anticoagulation. Recommend monitor closely due to dementia and per review of records appears to had a fall about one week ago. No family present or available to discuss long-term anticoagulation. Discussion w patient/family: All questions were answered. Thank you for involving us in the care of your patient. Please call with any questions. Subjective Principal diagnosis: CP Interval history: Patient alert and oriented 3 today. She denies any chest pain, short of breath , palpitations. Reports lives at home alone and performs her own ADLs. Objective Vital Signs, Last 4 Hours Temp Pulse Resp BP Pulse Ox 11/19/17 10:25 97.6 F 94 16 143/89 97 General: Conversant, No Apparent Distress HEENT: Atraumatic, Normocephaly, Mucus Membranes Moist Neck: No JVD, Normal carotid pulses Cardiac: Reg Rate and Rhythm, Normal S1 and S2, No Murmur Lungs: Normal Breath Sounds, No Wheeze, Rales, Rhonchi Neuro: Alert and responsive, No focal deficits noted Abdomen: Soft, Non-Tender Skin: No rashes noted on visualized skin Musculoskeletal: No Chest Wall Tenderness Extremities: No Clubbing, No Cyanosis, No Edema, Normal Pulses Results 11/18/17 02:11 11/19/17 10:17 Lab Results Laboratory Tests 11/17/17 11/17/17 11/18/17 12:33 18:21 00:42 Magnesium Troponin I 0.04 H* 0.04 H* 0.04 H* B-Natriuretic Peptide 11/18/17 11/18/17 11/18/17 00:42 00:42 02:11 Magnesium 1.8 Troponin I 0.04 H* B-Natriuretic Peptide 146 H 11/18/17 08:08 Magnesium Troponin I 0.04 H* B-Natriuretic Peptide ITS Impressions Chest X-Ray 11/17/17 12:22 IMPRESSION: No acute findings D/ / Heather Friedman MD / Heather Friedman MD Interpreting Provider: Heather Friedman MD Head CT 11/17/17 12:22 IMPRESSION: No acute intracranial abnormality. D/ / Mark Sanchez MD / Mark Sanchez MD Interpreting Provider: Mark Sanchez MD Foot X-Ray 11/17/17 12:27 IMPRESSION: 1st MTP degenerative changes. D/ / Heather Friedman MD / Heather Friedman MD Interpreting Provider: Heather Friedman MD Echocardiogram 11/18/17 23:53 Impressions: LVEF 65%. Indeterminate diastolic function. Mild concentric left ventricular hypertrophy. Normal right ventricular structure and function. Moderately dilated left atrium. Mildly dilated right atrium. No pulmonary hypertension. Left Ventricular Wall Motion: Rest Echo Findings All wall segments showed normal motion. Findings: Study Quality * Technically adequate exam. ECG Findings * Atrial fibrillation. Left Ventricle * LVEF 65%. * Indeterminate diastolic function. * Mild concentric left ventricular hypertrophy. Right Ventricle * Normal right ventricular structure and function. Left Atrium * Moderately dilated left atrium. Right Atrium * Mildly dilated right atrium. Interatrial Septum * No evidence of PFO by color Doppler. Aortic Valve * Trileaflet aortic valve. * Mildly sclerotic aortic valve leaflets. Mitral Valve * Mild mitral regurgitation. Tricuspid Valve * Estimated RVSP is 15 mmHg. * Estimated RA pressure is 5 mmHg. * No pulmonary hypertension. Pulmonic Valve * Normal pulmonic valve structure and function. Aorta * Normally sized aortic root. Pericardium * The pericardium appears normal. IVC * Normal IVC dimensions and inspiratory collapse. Active Medications Acetaminophen (Tylenol) 650 mg PO Q6HR PRN PRN Reason: Mild Pain/Fever Stop: 05/19/18 17:37 Hydrocodone Bitart/Acetaminophen (Dinosaur 5-325 Mg) 1 tab PO DAILY PRN PRN Reason: Pain Stop: 05/19/18 17:25 Last Admin: 11/19/17 09:51 Dose: 1 tab Albuterol/Ipratropium (Duoneb) 3 ml IH [id number] [facility] PRN Reason: Protocol Stop: 05/20/18 08:01 Last Admin: 11/19/17 11:42 Dose: 3 ml Atorvastatin Calcium (Lipitor) 40 mg PO HS [facility] Stop: 05/19/18 21:01 Last Admin: 11/18/17 21:26 Dose: 40 mg Bisacodyl (Dulcolax) 10 mg PO HS PRN PRN Reason: Constipation Stop: 05/20/18 13:28 Clopidogrel Bisulfate (Plavix) 75 mg PO DAILY [facility] Stop: 05/20/18 09:01 Last Admin: 11/19/17 09:52 Dose: 75 mg Divalproex Sodium (Depakote Sprinkle) 125 mg PO BID [facility] Stop: 05/19/18 21:01 Last Admin: 11/19/17 09:52 Dose: 125 mg Donepezil HCl (Aricept) 5 mg PO HS [facility] Stop: 05/19/18 21:01 Last Admin: 11/18/17 21:26 Dose: 5 mg Escitalopram Oxalate (Lexapro) 10 mg PO DAILY [facility] Stop: 05/20/18 09:01 Last Admin: 11/19/17 09:52 Dose: 10 mg Furosemide (Lasix) 20 mg PO DAILY [facility] Stop: 05/20/18 09:01 Last Admin: 11/19/17 09:52 Dose: 20 mg Sodium Chloride (0.9 % Sodium Chloride) 1,000 mls @ 75 mls/hr IVC .[id number] [facility] Stop: 05/20/18 13:31 Last Admin: 11/19/17 06:43 Dose: 75 mls/hr Memantine (Namenda) 5 mg PO BID [facility] Stop: 05/19/18 21:01 Last Admin: 11/19/17 09:52 Dose: 5 mg Metoprolol Tartrate (Lopressor) 25 mg PO BID [facility] Stop: 05/19/18 21:01 Last Admin: 11/19/17 09:52 Dose: 25 mg Naloxone HCl (Narcan) 0.4 mg IVP Q2MIN PRN PRN Reason: SEE COMMENTS Stop: 05/19/18 17:37 Olanzapine (Zyprexa Zydis) 5 mg PO DAILY [facility] Stop: 05/20/18 09:01 Last Admin: 11/19/17 09:52 Dose: 5 mg Oxycodone HCl (Roxicodone) 10 mg PO Q6HR PRN PRN Reason: Severe Pain Stop: 05/19/18 17:37 Potassium Chloride (Potassium Chloride) 20 meq PO DAILY [facility] Stop: 05/20/18 09:01 Last Admin: 11/19/17 09:52 Dose: 20 meq Rivaroxaban (Xarelto) 20 mg PO HS [facility] Stop: 05/19/18 21:01 Last Admin: 11/18/17 21:26 Dose: 20 mg Senna/Docusate Sodium (Senna Plus) 1 each PO BID [facility] PRN Reason: Protocol Stop: 05/20/18 13:31 Last Admin: 11/19/17 09:52 Dose: Not Given Tramadol HCl (Ultram) 50 mg PO Q6HR PRN PRN Reason: Moderate Pain Stop: 05/19/18 17:37 - Imaging and Cardiology Echo: report reviewed - EKG Interpretation EKG results cardiology: other (avg HR 75) Consult Discharge Plan - Plan Referrals: Allyson Bernstein MD [Primary Care Provider] -
--- NOTE | 2017-11-19 15:42 | Internal Med Progress Note ---
Date of Encounter: 11/19/17 Time of Encounter: 15:40 - Assessment and plan (1) Chest pain Current Visit: Yes Status: Acute Assessment and plan: Resolved. Cardiology following. Adynamic troponins. Echo shows no significant wall motion abnormalities. Follow cardiology recommendations. Qualifiers: Chest pain type: precordial pain Qualified Code(s): R07.2 - Precordial pain (2) COPD (chronic obstructive pulmonary disease) Current Visit: Yes Status: Chronic Assessment and plan: Continue bronchodilators as needed. Qualifiers: COPD type: chronic bronchitis Chronic bronchitis type: simple Qualified Code(s): J41.0 - Simple chronic bronchitis (3) Elevated troponin Current Visit: Yes Status: Acute Assessment and plan: Adynamic. Cardiology following. (4) Hyponatremia Current Visit: Yes Status: Chronic Assessment and plan: Sodium 135 today. Improved. (5) DVT prophylaxis Current Visit: Yes Status: Acute Assessment and plan: On Xarelto (6) Constipation Current Visit: Yes Status: Resolved Assessment and plan: Resolved with use of senna plus. Qualifiers: Constipation type: slow transit constipation Qualified Code(s): K59.01 - Slow transit constipation - Time Spent With Patient Total time spent is greater than 50% in coordination of care (as documented) at patient's floor/unit and/or counseling patient: - Subjective Interval history: Patient is currently lying in bed. Denies any complaints. Having bowel movements now. No chest pain. No palpitations. - Constitutional Vitals: Temp Pulse Resp BP Pulse Ox 98.5 F 69 16 96/65 95 11/19/17 15:31 11/19/17 15:31 11/19/17 15:31 11/19/17 15:31 11/19/17 15:31 General appearance: Present: cooperative, A&O X 1, answers questions appropriately - Neck Neck exam general surgery: Present: supple, trachea midline. Absent: lymphadenopathy - Respiratory Respiratory exam: Present: CTAB. Absent: accessory muscle use, rales, rhonchi, wheezes - Cardiovascular Cardiovascular exam: Present: RRR, +S1, +S2. Absent: diastolic murmur, gallop, rubs, systolic murmur - GI/Abdominal GI/Abdominal exam: Present: normal bowel sounds, soft, no peritoneal signs. Absent: distended, tenderness - Extremities Exam Extremities exam: Present: warm, radial pulses palpable and symmetrical. Absent : calf tenderness, cyanotic, pedal edema - Neurological Exam Neurological exam: Present: alert, no focal deficits. Absent: facial droop, speech deficit Internal Medicine: Result - Labs CBC & Chem 7: 11/18/17 02:11 11/19/17 10:17 Labs: BMP 11/19/17 10:17 Sodium 135 L Potassium 3.5 Chloride 99 Carbon Dioxide 29 BUN 9 Creatinine 0.85 Glucose 127 H Calcium 8.6 - ABG Interpretation ABG results: PT/INR, D-dimer PT 33.9 Seconds (9.4-12.1) H 11/18/17 00:42 - Impressions Impressions Echocardiogram 11/18/17 23:53 Impressions: LVEF 65%. Indeterminate diastolic function. Mild concentric left ventricular hypertrophy. Normal right ventricular structure and function. Moderately dilated left atrium. Mildly dilated right atrium. No pulmonary hypertension. Left Ventricular Wall Motion: Rest Echo Findings All wall segments showed normal motion. Findings: Study Quality * Technically adequate exam. ECG Findings * Atrial fibrillation. Left Ventricle * LVEF 65%. * Indeterminate diastolic function. * Mild concentric left ventricular hypertrophy. Right Ventricle * Normal right ventricular structure and function. Left Atrium * Moderately dilated left atrium. Right Atrium * Mildly dilated right atrium. Interatrial Septum * No evidence of PFO by color Doppler. Aortic Valve * Trileaflet aortic valve. * Mildly sclerotic aortic valve leaflets. Mitral Valve * Mild mitral regurgitation. Tricuspid Valve * Estimated RVSP is 15 mmHg. * Estimated RA pressure is 5 mmHg. * No pulmonary hypertension. Pulmonic Valve * Normal pulmonic valve structure and function. Aorta * Normally sized aortic root. Pericardium * The pericardium appears normal. IVC * Normal IVC dimensions and inspiratory collapse. Consult Discharge Plan - Plan Referrals: Allyson Bernstein MD [Primary Care Provider] -
[2017-11-19] MEDS: *HR* Rivaroxaban 10 MG TABLET PO SCH (20:57)
[2017-11-20] MEDS: Ipratropium/Albuterol Neb 3 ML IH SCH ×7 (00:11→23:40)
[2017-11-20] MEDS ORDERED: *HR* HYDROcodone/Acet 5/325 mg TABLET PO PRN (07:33)
[2017-11-20] MEDS: OLANZapine 5 MG TAB.RAPDIS PO SCH (07:57)
[2017-11-20] MEDS: Divalproex Sodium 125 MG CAPSULE PO SCH ×2 (07:58→20:06)
[2017-11-20] MEDS: Sennosides/Docusate Sodium TABLET PO SCH ×2 (07:58→20:06)
[2017-11-20] MEDS: Furosemide 20 MG TABLET PO SCH (10:13)
--- NOTE | 2017-11-20 11:20 | Cardiology Progress Note ---
Date of Encounter: 11/20/17 Time of Encounter: 11:10 Assessment and Plan (1) Elevated troponin Current Visit: Yes Status: Acute Per Cardiology: Troponins 0.045, flat and adynamic. Patient with history of dementia-- Alert and oriented 3 today, denies any chest pain. Echo showed EF preserved, NSWMA. Discussed with daughter Jaquelin who is POA, agreeable to medical management with close outpatient follow-up. On aspirin, Plavix, statin. Cardiology will sign off, follow-up arranged, reconsult as needed. All questions answered. (2) Anticoagulant long-term use Current Visit: Yes Status: Acute Per Cardiology: Apparent history of DVT and CVA. Appears to be on Xarelto 20mg PO daily. ECG and telemetry strips reviewed with Dr. Cabrera, appears to be sinus rhythm with PACs, however poor tracings and atrial for atrial fibrillation cannot be excluded. Regardless, patient is rate controlled and already on anticoagulation. Recommend monitor closely due to dementia and per review of records appears to had a fall about one week ago. Discussion w patient/family: All questions were answered. Thank you for involving us in the care of your patient. Please call with any questions. Discussed with daughter on the phone. Subjective Principal diagnosis: CP Interval history: Patient alert and oriented 3 today. She denies any chest pain, short of breath , palpitations. Reports daughter is her POA. Objective Vital Signs, Last 4 Hours Temp Pulse Resp BP Pulse Ox 11/20/17 10:39 97.8 F 69 17 126/74 97 11/20/17 07:37 17 92 General: Conversant, No Apparent Distress HEENT: Atraumatic, Normocephaly, Mucus Membranes Moist Neck: No JVD, Normal carotid pulses Cardiac: Reg Rate and Rhythm, Normal S1 and S2, No Murmur Lungs: Normal Breath Sounds, No Wheeze, Rales, Rhonchi Neuro: Alert and responsive, No focal deficits noted Abdomen: Soft, Non-Tender Skin: No rashes noted on visualized skin Musculoskeletal: No Chest Wall Tenderness Extremities: No Clubbing, No Cyanosis, No Edema, Normal Pulses Results 11/18/17 02:11 11/19/17 10:17 Laboratory Tests 11/19/17 10:17 Creatinine 0.85 Est GFR (Non-Af Amer) > 60 Active Medications Acetaminophen (Tylenol) 650 mg PO Q6HR PRN PRN Reason: Mild Pain/Fever Stop: 05/19/18 17:37 Hydrocodone Bitart/Acetaminophen ([place] 5-325 Mg) 1 tab PO DAILY PRN PRN Reason: Severe Pain Stop: 05/19/18 17:25 Albuterol/Ipratropium (Duoneb) 3 ml IH [id number] BIANCA PRN Reason: Protocol Stop: 05/20/18 08:01 Last Admin: 11/20/17 07:36 Dose: 3 ml Amlodipine Besylate (Norvasc) 2.5 mg PO DAILY [facility] PRN Reason: Protocol Stop: 05/22/18 11:16 Atorvastatin Calcium (Lipitor) 40 mg PO HS [facility] Stop: 05/19/18 21:01 Last Admin: 11/19/17 20:57 Dose: 40 mg Bisacodyl (Dulcolax) 10 mg PO HS PRN PRN Reason: Constipation Stop: 05/20/18 13:28 Clopidogrel Bisulfate (Plavix) 75 mg PO DAILY [facility] Stop: 05/20/18 09:01 Last Admin: 11/20/17 07:57 Dose: 75 mg Divalproex Sodium (Depakote Sprinkle) 125 mg PO BID [facility] Stop: 05/19/18 21:01 Last Admin: 11/20/17 07:58 Dose: 125 mg Donepezil HCl (Aricept) 5 mg PO HS [facility] Stop: 05/19/18 21:01 Last Admin: 11/19/17 20:57 Dose: 5 mg Escitalopram Oxalate (Lexapro) 10 mg PO DAILY [facility] Stop: 05/20/18 09:01 Last Admin: 11/20/17 07:58 Dose: 10 mg Furosemide (Lasix) 20 mg PO DAILY [facility] Stop: 05/20/18 09:01 Last Admin: 11/20/17 10:13 Dose: 20 mg Memantine (Namenda) 5 mg PO BID [facility] Stop: 05/19/18 21:01 Last Admin: 11/20/17 07:57 Dose: 5 mg Metoprolol Tartrate (Lopressor) 25 mg PO BID [facility] Stop: 05/19/18 21:01 Last Admin: 11/20/17 07:57 Dose: 25 mg Naloxone HCl (Narcan) 0.4 mg IVP Q2MIN PRN PRN Reason: SEE COMMENTS Stop: 05/19/18 17:37 Olanzapine (Zyprexa Zydis) 5 mg PO DAILY [facility] Stop: 05/20/18 09:01 Last Admin: 11/20/17 07:57 Dose: 5 mg Potassium Chloride (Potassium Chloride) 20 meq PO DAILY [facility] Stop: 05/20/18 09:01 Last Admin: 11/20/17 07:58 Dose: 20 meq Rivaroxaban (Xarelto) 20 mg PO HS [facility] Stop: 05/19/18 21:01 Last Admin: 11/19/17 20:57 Dose: 20 mg Senna/Docusate Sodium (Senna Plus) 1 each PO BID [facility] PRN Reason: Protocol Stop: 05/20/18 13:31 Last Admin: 11/20/17 07:58 Dose: 1 each Tramadol HCl (Ultram) 50 mg PO Q6HR PRN PRN Reason: Moderate Pain Stop: 05/19/18 17:37 - Imaging and Cardiology Echo: report reviewed Consult Discharge Plan - Plan Referrals: Allyson Bernstein MD [Primary Care Provider] -
[2017-11-20] MEDS: amLODIPine 5 MG TABLET PO SCH (12:37)
--- NOTE | 2017-11-20 15:10 | Discharge Summary ---
- NOTES TO OUTPATIENT PROVIDER Notes to Outpatient Provider: Patient was hospitalized here with shortness of breath, elevated troponin and hyponatremia along with some chest pain. She was evaluated by cardiology and underwent 2-D echocardiogram. Her troponins have been adynamic. 2-D echocardiogram did not show any wall motion abnormality. Cardiology recommends outpatient follow-up. She also has underlying COPD and was treated for that with bronchodilators as needed. She was evaluated by physical therapy and has been recommended placement to skilled rehabilitation. She will be discharged to skilled rehabilitation whenever she is accepted and has insurance approval. Date of Encounter: 11/20/17 Time of Encounter: 09:15 - Discharge Diagnosis (1) Chest pain Priority: Primary Status: Acute Qualifiers: Chest pain type: precordial pain Qualified Code(s): R07.2 - Precordial pain (2) COPD (chronic obstructive pulmonary disease) Priority: Secondary Status: Chronic Qualifiers: COPD type: chronic bronchitis Chronic bronchitis type: simple Qualified Code(s): J41.0 - Simple chronic bronchitis (3) Elevated troponin Priority: Secondary Status: Acute (4) Hyponatremia Priority: Secondary Status: Chronic (5) DVT prophylaxis Priority: Secondary Status: Acute (6) Constipation Priority: Secondary Status: Resolved Qualifiers: Constipation type: slow transit constipation Qualified Code(s): K59.01 - Slow transit constipation Hospital course: Ms. Yusuf is a 72 year old female Patient with history of dementia, COPD , prior DVT, CVA, PR who was hospitalized here with shortness of breath, elevated troponin and hyponatremia along with some chest pain. She was evaluated by cardiology and underwent 2-D echocardiogram. Her troponins have been adynamic. 2-D echocardiogram did not show any wall motion abnormality. Cardiology recommends outpatient follow-up. She also has underlying COPD and was treated for that with bronchodilators as needed. She was evaluated by physical therapy and has been recommended placement to skilled rehabilitation. She will be discharged to skilled rehabilitation whenever she is accepted and has insurance approval. Discharge discussed with: patient, nurse, case management - Time Spent with Patient Total time spent providing and/or coordinating discharge services: Greater than 30 minutes (40 min) - Discharge Medications Prescriptions: Polyethylene Glycol 3350 [MiraLAX] 17 gm PO DAILY #30 powd.pack Home Medications: Amlodipine Besylate 2.5 mg PO DAILY 02/27/17 [History] Atorvastatin [Lipitor] 40 mg PO HS 02/27/17 [History] BuPROPion XL (24 HR) [Wellbutrin Xl] 150 mg PO DAILY 02/27/17 [History] Clopidogrel [Plavix] 75 mg PO DAILY 02/27/17 [History] Donepezil HCl [Aricept] 5 mg PO HS 02/27/17 [History] Furosemide [Lasix] 20 mg PO DAILY 02/27/17 [History] Losartan Potassium [Cozaar] 100 mg PO DAILY 02/27/17 [History] Metoprolol [Lopressor] 25 mg PO BID 02/27/17 [History] Rivaroxaban [Xarelto] 20 mg PO HS 02/27/17 [History] Divalproex Sodium [Depakote] 125 mg PO BID 11/17/17 [History] Escitalopram [Lexapro] 10 mg PO DAILY 11/17/17 [History] Memantine [Namenda] 5 mg PO BID 11/17/17 [History] OLANZapine [Zyprexa] 5 mg PO DAILY 11/17/17 [History] Potassium Chloride [K-Tab ER] 20 meq PO DAILY 11/17/17 [History] Polyethylene Glycol 3350 [MiraLAX] 17 gm PO DAILY #30 powd.pack 11/20/17 [Rx] Allergies/Adverse Reactions: 3 Allergy/AdvReac Type Severity Reaction Status Date / Time aspirin AdvReac See Verified 11/17/17 17:36 Comments Penicillins [PCN] AdvReac See Verified 02/27/17 11:54 Comments Date of admission: 11/19/17 16:18 Primary care physician: Allyson Bernstein MD Consults: 11/17/17 16:02 Consult to Pastoral Services [CONS] Routine Comment: 11/17/17 23:53 Consult to Physician [CONS] Routine Consulting Provider: Yunier Huerta Reason for Consult: cp Call Completed: Yes 11/18/17 17:23 Consult to Physical Therapy [CONS] Routine Comment: Evaluate, develop and implement POC Reason for Consult: Recent falls at home, lives home alone, discharge planning Does patient have active BEDREST order?: No Is patient medically & hemodynamically stable?: Yes Patient assessed for mobility or mobilized this visit?: Yes 11/18/17 17:24 Consult to Occupational Therapy [CONS] Routine Comment: Evaluate, develop and implement POC Reason for Consult: lives home alone, recent falls, determine safe discharge planning Does patient have active BEDREST order?: No Is patient medically & hemodynamically stable?: Yes Patient assessed for mobility or mobilized this visit?: Yes Discharging clinician: Shannan Ng Anticipated date of discharge: 11/20/17 - Constitutional Vitals: Temp Pulse Resp BP Pulse Ox 97.8 F 69 16 126/74 97 11/20/17 10:39 11/20/17 10:39 11/20/17 11:29 11/20/17 10:39 11/20/17 11:29 General appearance: Present: cooperative, A&O X 1, answers questions appropriately - Neck Neck exam general surgery: Present: supple, trachea midline. Absent: lymphadenopathy - Respiratory Respiratory exam: Present: CTAB. Absent: accessory muscle use, rales, rhonchi, wheezes - Cardiovascular Cardiovascular exam: Present: RRR, +S1, +S2. Absent: diastolic murmur, gallop, rubs, systolic murmur - GI/Abdominal GI/Abdominal exam: Present: normal bowel sounds, soft, no peritoneal signs. Absent: distended, tenderness - Extremities Exam Extremities exam: Present: warm, radial pulses palpable and symmetrical. Absent : calf tenderness, cyanotic, pedal edema - Neurological Exam Neurological exam: Present: alert, no focal deficits. Absent: facial droop, speech deficit - Skin Skin exam: Present: dry, intact - Patient Status Disposition: Transfer SNF Condition: Good Functional capacity at discharge: uses cane/walker Overall status at discharge: patient is progressing back to baseline - Discharge Instructions Follow Up With: Stevan Farris CNP [Advanced Practice Nurse] - (Follow-up in 1 week) Allyson Bernstein MD [Primary Care Provider] - ([facility] ) - Diet and Activity Activity: as per physical therapy Diet: low fat, low cholesterol, low salt diet
[2017-11-20] MEDS: *HR* Rivaroxaban 10 MG TABLET PO SCH (20:06)
[2017-11-21] MEDS: Ipratropium/Albuterol Neb 3 ML IH SCH ×4 (04:31→15:48)
[2017-11-21] MEDS: amLODIPine 5 MG TABLET PO SCH (07:08)
[2017-11-21] MEDS: Divalproex Sodium 125 MG CAPSULE PO SCH (07:09)
[2017-11-21] MEDS: Sennosides/Docusate Sodium TABLET PO SCH (07:09)
[2017-11-21] MEDS: Furosemide 20 MG TABLET PO SCH (07:09)
[2017-11-21] MEDS: OLANZapine 5 MG TAB.RAPDIS PO SCH (07:09)
[2017-11-21 15:32] VITALS: BP 107/72
--- NOTE | 2017-11-21 16:09 | Physician Discharge Referral ---
ExtendedCare Referral Info Institutional Level of Care: Skilled - Transfer Medications Prescriptions: Polyethylene Glycol 3350 [MiraLAX] 17 gm PO DAILY #30 powd.pack Home Medications: Amlodipine Besylate 2.5 mg PO DAILY 02/27/17 [History] Atorvastatin [Lipitor] 40 mg PO HS 02/27/17 [History] BuPROPion XL (24 HR) [Wellbutrin Xl] 150 mg PO DAILY 02/27/17 [History] Clopidogrel [Plavix] 75 mg PO DAILY 02/27/17 [History] Donepezil HCl [Aricept] 5 mg PO HS 02/27/17 [History] Furosemide [Lasix] 20 mg PO DAILY 02/27/17 [History] Metoprolol [Lopressor] 25 mg PO BID 02/27/17 [History] Rivaroxaban [Xarelto] 20 mg PO HS 02/27/17 [History] Divalproex Sodium [Depakote] 125 mg PO BID 11/17/17 [History] Escitalopram [Lexapro] 10 mg PO DAILY 11/17/17 [History] Memantine [Namenda] 5 mg PO BID 11/17/17 [History] OLANZapine [Zyprexa] 5 mg PO DAILY 11/17/17 [History] Potassium Chloride [K-Tab ER] 20 meq PO DAILY 11/17/17 [History] Polyethylene Glycol 3350 [MiraLAX] 17 gm PO DAILY #30 powd.pack 11/20/17 [Rx] Allergies/Adverse Reactions: 3 Allergy/AdvReac Type Severity Reaction Status Date / Time aspirin AdvReac See Verified 11/17/17 17:36 Comments Penicillins [PCN] AdvReac See Verified 02/27/17 11:54 Comments - Respiratory Orders Smoking Cessation: Smoking cessation has been advised. For more information, call the [place] Tobacco Quit Line at 9-207-GAJS-NOW. CERTIFICATION: I certify that the transfer of the above named patient to an Extended Care Facility is necessary for the continuing treatment of the diagnosis listed. The above information is true and accurate reflection of patient's current condition. Confidential - Redisclosure prohibited without a patient's written consent.
== END 2017-11-21 17:50 | DRG 202 ==
LOC: EMEROO 12:00 → 2ANU 12:00 → SUATTDRO 14:55 → 2ANU 15:06 → SUATTDRO 11-19 16:18
PROVIDERS: ADMIT Internal Medicine Nephrology; ATTEND Hospitalist

== ENCOUNTER 2018-02-02 16:31 | Inpatient (IN) ==
[2018-02-02] MEDS ORDERED: 0.9 % Sodium Chloride 1,000 ML IVC ONE (16:43)
--- NOTE | 2018-02-02 16:47 | Emergency Department Note ---
Disposition Clinical Impression: Hyponatremia Altered mental status Qualifiers: Altered mental status type: unspecified Qualified Code(s): R41.82 - Altered mental status, unspecified Disposition: Admitted As Inpatient Condition: Fair Referrals: Allyson Bernstein MD [Primary Care Provider] - Forms: ED Satisfaction Letter Time of Disposition: 18:12 Altered Mental Status HPI - General Chief Complaint: ED Altered Mental Status Stated Complaint: AMS Time Seen by Provider: 02/02/18 16:36 Source: EMS Mode of arrival: EMS Limitations: altered mental status Nursing Notes Reviewed: Yes Vital Signs Reviewed: Yes - History of Present Illness HPI Narrative: 72-year-old female with history of A. fib, CAD, dementia, hypertension presents for evaluation of altered mental status. Patient presented via EMS. EMS report that the patient's daughter called after the patient was found on the floor. Unclear the duration. Patient does live by herself. Patient does have history of baseline dementia but is more acutely altered per EMS. Patient's alert and oriented 2. Patient denies any pain. No fevers. No abdominal pain. No nausea or vomiting. No back pain. EMS report that there is concern that the patient had some medication issues. There is no family initially at bedside providing additional history. - Related Data Home Medications Medication Instructions Recorded Confirmed Atorvastatin [Lipitor] 40 mg PO HS 02/27/17 02/02/18 Clopidogrel [Plavix] 75 mg PO DAILY 02/27/17 02/02/18 Donepezil HCl [Aricept] 5 mg PO HS 02/27/17 02/02/18 Furosemide [Lasix] 20 mg PO DAILY 02/27/17 02/02/18 Metoprolol [Lopressor] 25 mg PO BID 02/27/17 02/02/18 Rivaroxaban [Xarelto] 20 mg PO HS 02/27/17 02/02/18 Divalproex Sodium [Depakote] 125 mg PO BID 11/17/17 02/02/18 Escitalopram [Lexapro] 10 mg PO DAILY 11/17/17 02/02/18 Memantine [Namenda] 5 mg PO BID 11/17/17 02/02/18 OLANZapine [Zyprexa] 5 mg PO DAILY 11/17/17 02/02/18 Potassium Chloride [K-Tab ER] 20 meq PO DAILY 11/17/17 02/02/18 HYDROcodone/Acet 5/325 mg [[place] 1 tab PO DAILY PRN 02/02/18 02/02/18 5-325 mg] Previous Rx's Medication Instructions Recorded Polyethylene Glycol 3350 [MiraLAX] 17 gm PO DAILY #30 powd.pack 11/20/17 Allergies Allergy/AdvReac Type Severity Reaction Status Date / Time aspirin AdvReac See Verified 11/17/17 17:36 Comments Penicillins [PCN] AdvReac See Verified 02/27/17 11:54 Comments All systems ED: reviewed and negative except as stated. Constitutional: Denies: fever Cardiovascular: Denies: chest pain Respiratory: Denies: cough, dyspnea Gastrointestinal: Denies: abdominal pain, nausea, vomiting Musculoskeletal: Denies: back pain Neurological: Denies: headache, weakness Past Medical History - Past Medical History Medical history: Reports: atrial fibrillation, COPD, CVA, DVT, dementia, hyperlipidemia, hypertension, myocardial infarction Surgical history: Reports: no surgical history Psychiatric history: Reports: no psych history - Social History Smoking Status: Current every day smoker Smokeless Tobacco Status: No Alcohol use: Reports: none Drug use: Reports: none Physical Exam - General Limitations: altered mental status General appearance: alert, in no apparent distress - Head Head exam: atraumatic, normocephalic, normal inspection - Eye Eye exam: Present: normal appearance, PERRL, EOMI. Absent: miosis, mydriasis - ENT ENT exam: normal exam, mucous membranes moist - Neck Neck exam: Present: normal inspection - Chest Chest inspection: Present: normal inspection, symmetric chest wall rise - Respiratory Respiratory exam: Present: normal lung sounds bilaterally. Absent: respiratory distress - Cardiovascular Cardiovascular exam: Present: regular rate, irregular rhythm. Absent: systolic murmur - Abdominal Exam Abdominal exam: Present: soft, Non-Tender - Extremities Exam Extremities exam: Present: normal inspection, pedal edema (Trace bilateral), other (Signs of trauma. Moving all extremities) - Back Exam Back exam: Present: normal inspection. Absent: tenderness - Neurological Exam Neurological exam: Present: alert, CN II-XII intact. Absent: oriented X3 - Expanded Neurological Exam Patient oriented to: Present: person, place. Absent: time Speech: Present: fluid speech Cranial nerves: EOM function (II, III, IV, ): Normal, facial sensation (V): Normal, facial palsy (VII): Normal, spinal accessory function (XI): Normal, tongue deviation (XII): Normal Motor strength - LUE: 5/5 Motor strength - RUE: 5/5 Motor strength - LLE: 5/5 Motor strength - RLE: 5/5 Coma Scale Eye Opening: Spontaneous Coma Scale Motor Response: Obeys Commands Coma Scale Verbal Response: Confused Coma Scale Total: 14 - Skin Skin exam: Present: warm, dry, intact, normal color. Absent: rash Course Course Narrative: Patient seen and examined. Patient's medications reviewed that show several neuropsychiatric medications. Including Depakote. Patient is also on Xarelto. Will check basic labs and potential for the patient's altered mental status. CT scan of the head. Ultimate disposition will likely be admission. - Reevaluation(s) Reevaluation #1: Family is now available at bedside. Family states that she does live by herself. Patient was found on the ground. Notes that her dementia is gotten worse. Family is concerned about the patient's safety and feels that the patient needs more support at home. Time: 18:41 Vital Signs Temperature 98.8 F 02/02/18 16:42 Pulse Rate 81 02/02/18 16:42 Respiratory Rate 18 02/02/18 16:42 Blood Pressure 133/91 02/02/18 16:42 O2 Sat by Pulse Oximetry 99 02/02/18 16:42 Temperature 98.8 F 02/02/18 16:42 Pulse Rate 76 02/02/18 18:08 Respiratory Rate 16 02/02/18 18:08 Blood Pressure 136/74 02/02/18 18:08 O2 Sat by Pulse Oximetry 96 02/02/18 18:08 Oxygen Delivery Oxygen Delivery Room Air Altered Mental Status - MDM Narrative Medical decision making narrative: Patient presented for concerns of altered mental status. Does have baseline dementia. Medication list reviewed shows many neuropsychiatric medications concerns of possible polypharmacy. Patient was found on the ground. No external evidence of trauma. Patient complaining of anything. Patient did get a head CT and a CPK. CPK is unremarkable. Head CT shows no acute abnormalities. Patient's labs show hyponatremia which is been that when the past likely secondary to her neuropsychiatric medications. Patient did get a liter of fluids based on her physical exam. Patient will be admitted to the hospital service to ensure symptomatic resolution and continued investigation. Family is agreeable with socially responsible investment adviser input and discharge planning to help facilitate appropriate post hospital care. - Lab Data Lab results reviewed: Yes I reviewed the patient's lab results. Result diagrams: 02/02/18 16:57 02/02/18 16:57 Lab Results 02/02/18 02/02/18 02/02/18 Range/Units 16:57 16:57 16:57 WBC 7.9 (4.3-11.1) K/mcL RBC 4.02 (3.82-4.97) M/mcL Hgb 12.4 (11.5-15.4) g/dL Hct 36.2 (35.3-44.9) % MCV 90.0 (83.0-100.0) fL MCH 30.8 (28.0-33.3) pg MCHC 34.3 (31.6-35.5) g/dL RDW 13.9 (11.5-14.5) % Plt Count 251 (140-400) K/mcL MPV 10.5 (9.4-12.4) fL Immature Gran % 0.4 (0-4) % Seg Neutrophils % 70.0 % Lymphocytes % 20.6 % Monocytes % 8.5 % Eosinophils % 0.4 % Basophils % 0.1 % Neutrophils # 5.5 (1.6-8.9) K/mcL Lymphocytes # 1.6 (0.6-4.6) K/mcL Monocytes # 0.7 (0.0-1.3) K/mcL Eosinophils # 0.0 (0.0-0.6) K/mcL Basophils # 0.0 (0.0-0.2) K/mcL PT 15.6 H (9.4-12.1) Seconds INR 1.4 APTT 33.1 (26.0-36.0) Seconds Sodium 126 L (136-145) mEq/L Potassium 3.8 (3.5-5.1) mEq/L Chloride 88 L (98-107) mEq/L Carbon Dioxide 30 H (23-29) mEq/L BUN 6 L (8-23) mg/dL Creatinine 0.65 (0.60-1.20) mg/dL Est GFR ( Amer) > 60 (> 60) Est GFR (Non-Af Amer) > 60 (> 60) BUN/Creatinine Ratio 9 (6-26) Glucose 107 H (70-105) mg/dL Calculated Osmolality 260 L (280-300) Calcium 9.3 (8.6-10.3) mg/dL Total Bilirubin 0.7 (0.3-1.0) mg/dL Direct Bilirubin 0.2 (0.0-0.2) mg/dL Indirect Bilirubin 0.5 (0.0-1.2) mg/dL AST 18 (13-39) Units/L ALT 7 (7-52) Units/L Alkaline Phosphatase 95 (34-104) Units/L Creatine Kinase 109 (30-223) Units/L Troponin I < 0.03 (< 0.04) ng/mL Serum Total Protein 6.4 (6.4-8.9) g/dL Albumin 3.5 (3.5-5.7) g/dL Globulin 2.9 (2.4-3.5) g/dL Albumin/Globulin Ratio 1.2 (1.1-2.2) Urine Color (Yellow) Urine Clarity (Clear) Urine pH (5.0-8.0) pH Units Ur Specific [place] (1.010-1.025) Urine Protein (Neg-Trace) mg/dL Urine Glucose (UA) (Normal) mg/dL Urine Ketones (Negative) mg/dL Urine Blood (Negative) Urine Nitrite (Negative) Urine Bilirubin (Negative) Urine Urobilinogen (Normal) mg/dL Ur Leukocyte Esterase (Negative) Urine Microscopic RBC (0-3) per hpf Urine Microscopic WBC (0-3) per hpf Ur Squamous Epith Cells (None-Few) per lpf Ur Transition Epith Cell (None-Few) per hpf Urine Bacteria (None-Few) per hpf Hyaline Casts (None-Few) per lpf Ur Culture Indicated? (NO) Urine Opiates Screen (Xtmjdy=921) ng/mL Ur Barbiturates Screen (Gcqzbz=999) ng/mL Valproic Acid (50-100) mcg/mL Ur Phencyclidine Scrn (Cutoff=25) ng/mL Ur Amphetamines Screen (Kqvigo=1058) ng/mL U Benzodiazepines Scrn (Qatvnt=809) ng/mL Urine Cocaine Screen (Cutoff= 300) ng/mL U Marijuana (THC) Screen (Cutoff = 50) ng/mL Ur Drug Screen Interp Ethyl Alcohol < 10 (Less than 10) mg/dL 02/02/18 02/02/18 02/02/18 Range/Units 16:57 18:14 18:14 WBC (4.3-11.1) K/mcL RBC (3.82-4.97) M/mcL Hgb (11.5-15.4) g/dL Hct (35.3-44.9) % MCV (83.0-100.0) fL MCH (28.0-33.3) pg MCHC (31.6-35.5) g/dL RDW (11.5-14.5) % Plt Count (140-400) K/mcL MPV (9.4-12.4) fL Immature Gran % (0-4) % Seg Neutrophils % % Lymphocytes % % Monocytes % % Eosinophils % % Basophils % % Neutrophils # (1.6-8.9) K/mcL Lymphocytes # (0.6-4.6) K/mcL Monocytes # (0.0-1.3) K/mcL Eosinophils # (0.0-0.6) K/mcL Basophils # (0.0-0.2) K/mcL PT (9.4-12.1) Seconds INR APTT (26.0-36.0) Seconds Sodium (136-145) mEq/L Potassium (3.5-5.1) mEq/L Chloride (98-107) mEq/L Carbon Dioxide (23-29) mEq/L BUN (8-23) mg/dL Creatinine (0.60-1.20) mg/dL Est GFR ( Amer) (> 60) Est GFR (Non-Af Amer) (> 60) BUN/Creatinine Ratio (6-26) Glucose (70-105) mg/dL Calculated Osmolality (280-300) Calcium (8.6-10.3) mg/dL Total Bilirubin (0.3-1.0) mg/dL Direct Bilirubin (0.0-0.2) mg/dL Indirect Bilirubin (0.0-1.2) mg/dL AST (13-39) Units/L ALT (7-52) Units/L Alkaline Phosphatase (34-104) Units/L Creatine Kinase (30-223) Units/L Troponin I (< 0.04) ng/mL Serum Total Protein (6.4-8.9) g/dL Albumin (3.5-5.7) g/dL Globulin (2.4-3.5) g/dL Albumin/Globulin Ratio (1.1-2.2) Urine Color Yellow (Yellow) Urine Clarity Clear (Clear) Urine pH 6.5 (5.0-8.0) pH Units Ur Specific [place] 1.012 (1.010-1.025) Urine Protein Negative (Neg-Trace) mg/dL Urine Glucose (UA) Normal (Normal) mg/dL Urine Ketones Negative (Negative) mg/dL Urine Blood Negative (Negative) Urine Nitrite Negative (Negative) Urine Bilirubin Negative (Negative) Urine Urobilinogen Normal (Normal) mg/dL Ur Leukocyte Esterase Trace H (Negative) Urine Microscopic RBC 0-3 (0-3) per hpf Urine Microscopic WBC 3-5 H (0-3) per hpf Ur Squamous Epith Cells Many H (None-Few) per lpf Ur Transition Epith Cell Few (None-Few) per hpf Urine Bacteria Moderate H (None-Few) per hpf Hyaline Casts None Seen (None-Few) per lpf Ur Culture Indicated? NO. A (NO) Urine Opiates Screen Negative (Ivfhik=258) ng/mL Ur Barbiturates Screen Negative (Pvysbb=128) ng/mL Valproic Acid 22 L (50-100) mcg/mL Ur Phencyclidine Scrn Negative (Cutoff=25) ng/mL Ur Amphetamines Screen Negative (Blseaf=5974) ng/mL U Benzodiazepines Scrn Negative (Fvixvm=515) ng/mL Urine Cocaine Screen Negative (Cutoff= 300) ng/mL U Marijuana (THC) Screen Negative (Cutoff = 50) ng/mL Ur Drug Screen Interp See Below Ethyl Alcohol (Less than 10) mg/dL - Radiology Data Radiology results reviewed: Yes I reviewed the patient's radiology results. Chest X-Ray 02/02/18 16:43 IMPRESSION: Stable chest x-ray. No acute disease. D/ / Caleb Frances MD / Caleb Frances MD Interpreting Provider: Caleb Frances MD Head CT 02/02/18 16:43 IMPRESSION: Stable chronic ischemic and senescent changes. No CT evidence for acute intracranial process. D/ / Kieran Tomas / Kieran Tomas Interpreting Provider: Kieran Tomas - EKG Data EKG attestation: Yes I reviewed and interpreted this EKG. EKG shows normal: sinus rhythm Rate: normal Rhythm: A.Fib Interpretation: no acute changes, nonspecific ST-T wave changes TPA Checklist - LKW: 3-4.5 hrs Add. Warnings/Precautions Patient/family understanding: The patient/family members have been counseled and understood the risk, benefit , and alternatives of treatment. SMary - Nuno Situation: Demographics Background: Presenting Complaint Assessment: Vital Signs, Course and respsone to treatment, Patient/Family Expectation Recommendation: Barrier(s) to disposition, Recommendation based on pending studies, treatments, or consults SMary Report Given to: Hospitalist Nuno Repor Time: 18:12 Attestation Statement - Attestation Attestation: I examined this patient and my medical decision-making was reviewed with the Resident Physician. I agree with the documented findings, disposition and treatment plan as described except to the extent set forth below. Findings consistent with altered mental status and fall. We will check laboratory analyses, CK, urinalysis. Patient is declining mental status as well as dementia and has evidence of dehydration. We will admit for further management , PT, OT, discharge planning.
[2018-02-02 17:12] LABS: Basophils % 0.1 %; Eosinophils % 0.4 %; Hematocrit 36.2 % (35.3-44.9); Hemoglobin 12.4 g/dL (11.5-15.4); Immature Granulocytes % 0.4 % (0-4); Lymphocytes # 1.6 K/mcL (0.6-4.6); Lymphocytes % 20.6 %; Mean Corpuscular HGB Conc 34.3 g/dL (31.6-35.5); Mean Corpuscular Hemoglobin 30.8 pg (28.0-33.3); Mean Platelet Volume 10.5 fL (9.4-12.4); Monocytes # 0.7 K/mcL (0.0-1.3); Monocytes % 8.5 %; Neutrophils # 5.5 K/mcL (1.6-8.9); Platelet Count 251 K/mcL (140-400); Red Blood Count 4.02 M/mcL (3.82-4.97); Red Cell Distribution Width 13.9 % (11.5-14.5)
[2018-02-02 17:23] LABS: Activated Partial Thrombo Time 33.1 Seconds (26.0-36.0); INR 1.4; Prothrombin Time 15.6 Seconds (9.4-12.1)
[2018-02-02 17:31] LABS: Troponin I < 0.03 ng/mL (< 0.04)
[2018-02-02 17:32] LABS: Alanine Aminotransferase 7 Units/L (7-52); Albumin 3.5 g/dL (3.5-5.7); Albumin/Globulin Ratio 1.2 (1.1-2.2); Alkaline Phosphatase 95 Units/L (34-104); Aspartate Amino Transferase 18 Units/L (13-39); BUN/Creatinine Ratio 9 (6-26); Bilirubin,Direct 0.2 mg/dL (0.0-0.2); Bilirubin,Indirect 0.5 mg/dL (0.0-1.2); Bilirubin,Total 0.7 mg/dL (0.3-1.0); Blood Urea Nitrogen 6 mg/dL (8-23); Calcium 9.3 mg/dL (8.6-10.3); Carbon Dioxide 30 mEq/L (23-29); Chloride 88 mEq/L (98-107); Creatine Kinase 109 Units/L (30-223); Ethanol < 10 mg/dL (Less than 10); Globulin 2.9 g/dL (2.4-3.5); Glucose 107 mg/dL (70-105); Osmolality,Calculated 260 (280-300); Potassium 3.8 mEq/L (3.5-5.1); Sodium 126 mEq/L (136-145); Total Protein 6.4 g/dL (6.4-8.9); eGFR For Non-African Americans > 60 (> 60)
[2018-02-02 18:22] LABS: Bilirubin,Urine Negative (Negative); Blood,Urine Negative (Negative); Clarity,Urine Clear (Clear); Color,Urine Yellow (Yellow); Glucose,Urine (UA) Normal (Normal); Ketones,Urine Negative (Negative); Leukocyte Esterase,Urine Trace (Negative); Nitrite,Urine Negative (Negative); PH,Urine 6.5 pH Units (5.0-8.0); Protein,Urine Negative (Neg-Trace); Specific Gravity,Urine 1.012 (1.010-1.025); Urobilinogen,Urine Normal (Normal)
[2018-02-02 18:32] LABS: Amphetamine Screen,Urine Negative ng/mL (Cutoff=1000); Barbiturate Screen,Urine Negative ng/mL (Cutoff=200); Benzodiazepines Screen,Urine Negative ng/mL (Cutoff=200); Cannabinoid Screen,Urine Negative ng/mL (Cutoff = 50); Cocaine Screen,Urine Negative ng/mL (Cutoff= 300); Opiate Screen,Urine Negative ng/mL (Cutoff=300); Phencyclidine Screen,Urine Negative ng/mL (Cutoff=25)
[2018-02-02 18:34] LABS: Hyaline Casts,Urine None Seen per lpf (None-Few); Squamous Epithelial Cell,Urine Many per lpf (None-Few)
[2018-02-02 18:35] LABS: Bacteria,Urine Moderate per hpf (None-Few); RBC,Urine 0-3 per hpf (0-3); Transitional Epi Cells,Urine Few per hpf (None-Few)
[2018-02-02] MEDS ORDERED: Naloxone 0.4 MG/ML INJ IVP PRN ×2 (19:28→22:17)
--- NOTE | 2018-02-02 19:28 | Internal Med History&Physical ---
Date of Encounter: 02/03/18 Time of Encounter: 19:27 Internal Medicine - H&P: HPI Chief complaint: AMS History of present illness: Ms. Yusuf is a 72 year old female with a past medical history of CVA, COPD , peripheral vascular disease, dementia, iron deficiency anemia and history of falls who presents to the ED due to altered mental status. Per EMS report, the patient's daughter called after the patient was found on the floor for an unclear duration of time. Patient lives by herself. Patient does have history of baseline dementia but is more acutely altered per EMS. Patient hemodynamically stable with no presentation of fever, tachycardia, tachypnea or hypoxemia. Laboratory findings notable for a sodium of 126. Normal BUN/ creatinine creatinine. No elevated white blood cell count. CPK normal. UDS showed low valproic acid level. Patient's baseline mental status is. CT of the head was performed along with a chest x-ray. Both of which were unremarkable. Upon my initial assessment patient was somnolent and arousable only to sternal rub. She did open her eyes and communicate and was able to follow commands briefly before falling back to sleep. Repeat vitals were stable. Repeat lab work including EKG, ABG were performed. Blood sugar was found to be 61 and she was given Glucagon with good response. Past Med Surg Social Fam HX - Past Medical History Medical history: atrial fibrillation, COPD, CVA, DVT, dementia, hyperlipidemia, hypertension, myocardial infarction Psychiatric history: no psych history - Past Surgical History Surgical History: no surgical history - Social History Smoking Status: Current every day smoker Smokeless Tobacco Status: No Alcohol use: none Drug use: none Internal Medicine - H&P: Meds Atorvastatin [Lipitor] 40 mg PO HS 02/27/17 [History] Clopidogrel [Plavix] 75 mg PO DAILY 02/27/17 [History] Donepezil HCl [Aricept] 5 mg PO HS 02/27/17 [History] Furosemide [Lasix] 20 mg PO DAILY 02/27/17 [History] Metoprolol [Lopressor] 25 mg PO BID 02/27/17 [History] Rivaroxaban [Xarelto] 20 mg PO HS 02/27/17 [History] Divalproex Sodium [Depakote] 125 mg PO BID 11/17/17 [History] Escitalopram [Lexapro] 10 mg PO DAILY 11/17/17 [History] Memantine [Namenda] 5 mg PO BID 11/17/17 [History] OLANZapine [Zyprexa] 5 mg PO DAILY 11/17/17 [History] Potassium Chloride [K-Tab ER] 20 meq PO DAILY 11/17/17 [History] Polyethylene Glycol 3350 [MiraLAX] 17 gm PO DAILY #30 powd.pack 11/20/17 [Rx] HYDROcodone/Acet 5/325 mg [[place] 5-325 mg] 1 tab PO DAILY PRN 02/02/18 [History] 3 Allergy/AdvReac Type Severity Reaction Status Date / Time aspirin AdvReac See Verified 11/17/17 17:36 Comments Penicillins [PCN] AdvReac See Verified 02/27/17 11:54 Comments All Systems PM: A 10-system review of systems was performed and is negative for pertinent findings except as documented above in the HPI. - Constitutional Vitals: Temp Pulse Resp BP Pulse Ox 98.8 F 69 18 130/73 100 02/02/18 16:42 02/02/18 19:25 02/02/18 19:25 02/02/18 19:25 02/02/18 19:25 Exam: General: Somnolent arouses to sternal rubs Skin:Normal color, no rash, no lesions. HEENT:EOM, pinpoint pupils; dry oral mucosa Cardiovascular:Normal S1 & S2, no rubs, murmurs or gallops. No JVD. Pulse regular. Lungs:Normal breath sounds, no wheezes or crackles. Abdomen:Soft, non-tender, no rigidity. Extremities:No deformity, no edema or tenderness, no joint swelling or clubbing. Neurological: Somnolent. Arouses to sternal rub. Briefly follows commands. He is moving all 4 limbs. Pulses:Carotid and radial pulses normal +2. Rest of the physical exam is non contributory Internal Med - H&P Results - Labs CBC & Chem 7: 02/03/18 01:47 02/03/18 01:47 - Assessment and plan (1) Fall Current Visit: Yes Status: Acute Assessment and plan: Evidence of unwitnessed fall based on patient being found on the floor. Unclear duration. Patient appears to have a history of falls based on previous documentation. Initial CPK normal. Will continue with correction of Hyponatremia. Consider PT/OT Qualifiers: Encounter type: sequela Qualified Code(s): W19.XXXS - Unspecified fall, sequela (2) Altered mental status Current Visit: Yes Status: Acute Assessment and plan: Altered mental status in the setting of baseline dementia. Patient is on multiple psychotropic medications. No evidence of an underlying infectious process. She does appear to have a history of hyponatremia based on previous lab work, however her sodium is much lower than previous measurements. Additionally, her valproic acid level was found to be low, 21. Patient does have a history of CVA, however, CT scan of the head unremarkable. Change in mental status at this point likely metabolic in the setting of hyponatremia and may be compounded by the fact that she is on multiple psychotropic medications. We will correct sodium. Neuro checks. Continue telemetry. Qualifiers: Altered mental status type: unspecified Qualified Code(s): R41.82 - Altered mental status, unspecified (3) Hyponatremia Current Visit: Yes Status: Chronic Assessment and plan: Hyponatremia appears to be chronic with sodium values in the low 130s based on previous sodium assessments. However, her current value of 126 is the lowest. Patient received 2 fluid boluses of normal saline in the ED. We will repeat sodium. Check urine sodium and urine osmolality. (4) COPD (chronic obstructive pulmonary disease) Current Visit: No Status: Chronic Assessment and plan: History of COPD. No evidence of exacerbation at this time. We will continue home medications. Qualifiers: COPD type: chronic bronchitis Chronic bronchitis type: simple Qualified Code(s): J41.0 - Simple chronic bronchitis (5) DVT prophylaxis Current Visit: No Status: Acute Assessment and plan: Patient on Xarelto. Will resume. - Time Spent With Patient Total time spent is greater than 50% in coordination of care (as documented) at patient's floor/unit and/or counseling patient:
[2018-02-02] MEDS: 0.9 % Sodium Chloride 1,000 ML IVC SCH ×2 (20:30→21:09)
[2018-02-02 21:14] LABS: Basophils % 0.2 %; Eosinophils # 0.1 K/mcL (0.0-0.6); Eosinophils % 0.9 %; Hematocrit 34.4 % (35.3-44.9); Hemoglobin 11.8 g/dL (11.5-15.4); Immature Granulocytes % 0.4 % (0-4); Lymphocytes # 1.7 K/mcL (0.6-4.6); Lymphocytes % 30.8 %; Mean Corpuscular HGB Conc 34.3 g/dL (31.6-35.5); Mean Corpuscular Hemoglobin 30.9 pg (28.0-33.3); Mean Corpuscular Volume 90.1 fL (83.0-100.0); Mean Platelet Volume 10.4 fL (9.4-12.4); Monocytes # 0.5 K/mcL (0.0-1.3); Monocytes % 8.7 %; Neutrophils # 3.2 K/mcL (1.6-8.9); Platelet Count 213 K/mcL (140-400); Red Blood Count 3.82 M/mcL (3.82-4.97)
[2018-02-02 21:36] LABS: BUN/Creatinine Ratio 11 (6-26); Blood Urea Nitrogen 6 mg/dL (8-23); Calcium 8.8 mg/dL (8.6-10.3); Carbon Dioxide 30 mEq/L (23-29); Chloride 95 mEq/L (98-107); Glucose 85 mg/dL (70-105); Osmolality,Calculated 267 (280-300); Potassium 3.5 mEq/L (3.5-5.1); Sodium 130 mEq/L (136-145); eGFR For Non-African Americans > 60 (> 60)
[2018-02-02 21:37] LABS: Alanine Aminotransferase 7 Units/L (7-52); Albumin 2.9 g/dL (3.5-5.7); Albumin/Globulin Ratio 1.2 (1.1-2.2); Alkaline Phosphatase 80 Units/L (34-104); Aspartate Amino Transferase 14 Units/L (13-39); BUN/Creatinine Ratio 11 (6-26); Bilirubin,Total 0.6 mg/dL (0.3-1.0); Blood Urea Nitrogen 6 mg/dL (8-23); Calcium 8.7 mg/dL (8.6-10.3); Carbon Dioxide 30 mEq/L (23-29); Chloride 94 mEq/L (98-107); Globulin 2.5 g/dL (2.4-3.5); Glucose 85 mg/dL (70-105); Osmolality,Calculated 267 (280-300); Potassium 3.5 mEq/L (3.5-5.1); Sodium 130 mEq/L (136-145); Total Protein 5.4 g/dL (6.4-8.9); Troponin I < 0.03 ng/mL (< 0.04); eGFR For Non-African Americans > 60 (> 60)
[2018-02-02 21:50] LABS: Thyroid Stimulating Hormone 1.799 mcIU/mL (0.340-5.600)
[2018-02-02 22:57] LABS: ABG Base Excess 5 mEq/L (-2 to 3); ABG HCO3 31 mEq/L (21-27); ABG Oxygen Saturation 94 % (95-98); ABG PCO2 50 mmHg (35-45); ABG PO2 73 mmHg (85-104); ABG TCO2 33 mEq/L (20-26)
[2018-02-02] MEDS ORDERED: *HR* Dextrose 50 % in Water (Syg) 50 ML SYRINGE IVP PRN (23:39)
[2018-02-02] MEDS ORDERED: *HR* Dextrose 50 % in Water (Syg) 50 ML SYRINGE ONE (23:42)
[2018-02-03 03:29] LABS: Basophils % 0.4 %; Eosinophils # 0.1 K/mcL (0.0-0.6); Eosinophils % 1.7 %; Hematocrit 36.3 % (35.3-44.9); Hemoglobin 12.1 g/dL (11.5-15.4); Immature Granulocytes % 0.2 % (0-4); Immature Platelets 6.1 % (1.1-6.1); Lymphocytes # 1.5 K/mcL (0.6-4.6); Lymphocytes % 31.8 %; Mean Corpuscular HGB Conc 33.3 g/dL (31.6-35.5); Mean Corpuscular Hemoglobin 30.6 pg (28.0-33.3); Mean Corpuscular Volume 91.7 fL (83.0-100.0); Mean Platelet Volume 11.2 fL (9.4-12.4); Monocytes # 0.6 K/mcL (0.0-1.3); Monocytes % 12.2 %; Neutrophils # 2.6 K/mcL (1.6-8.9); Platelet Count 225 K/mcL (140-400); Red Blood Count 3.96 M/mcL (3.82-4.97); Red Cell Distribution Width 14.2 % (11.5-14.5); Segmented Neutrophils % 53.7 %
[2018-02-03 03:46] LABS: INR 1.1; Prothrombin Time 12.7 Seconds (9.4-12.1)
[2018-02-03 03:47] LABS: Alanine Aminotransferase 6 Units/L (7-52); Albumin 3.1 g/dL (3.5-5.7); Albumin/Globulin Ratio 1.1 (1.1-2.2); Alkaline Phosphatase 84 Units/L (34-104); Aspartate Amino Transferase 15 Units/L (13-39); BUN/Creatinine Ratio 8 (6-26); Bilirubin,Total 0.6 mg/dL (0.3-1.0); Blood Urea Nitrogen 5 mg/dL (8-23); Calcium 8.9 mg/dL (8.6-10.3); Carbon Dioxide 31 mEq/L (23-29); Chloride 95 mEq/L (98-107); Globulin 2.8 g/dL (2.4-3.5); Glucose 138 mg/dL (70-105); Magnesium 1.7 mg/dL (1.6-2.6); Osmolality,Calculated 277 (280-300); Potassium 3.3 mEq/L (3.5-5.1); Sodium 134 mEq/L (136-145); Total Protein 5.9 g/dL (6.4-8.9); eGFR For Non-African Americans > 60 (> 60)
[2018-02-03] MEDS: 0.9 % Sodium Chloride 1,000 ML IVC SCH (05:58)
--- NOTE | 2018-02-03 07:38 | Internal Med Progress Note ---
Hospitalist Progress Note - Encounter Date of Encounter: 02/03/18 Time of Encounter: 07:35 - Exam Vitals: Temp Pulse Resp BP Pulse Ox 98.0 F 74 16 111/82 99 02/03/18 06:52 02/03/18 06:52 02/03/18 06:52 02/03/18 06:52 02/03/18 06:52 Exam: General: Somnolent arouses to sternal rubs Skin:Normal color, no rash, no lesions. HEENT:EOM, pinpoint pupils; dry oral mucosa Cardiovascular:Normal S1 & S2, no rubs, murmurs or gallops. No JVD. Pulse regular. Lungs:Normal breath sounds, no wheezes or crackles. Abdomen:Soft, non-tender, no rigidity. Extremities:No deformity, no edema or tenderness, no joint swelling or clubbing. Neurological: Somnolent. Arouses to sternal rub. Briefly follows commands. He is moving all 4 limbs. Pulses:Carotid and radial pulses normal +2. Rest of the physical exam is non contributory - Assessment and Plan (1) Altered mental status Current Visit: Yes Status: Acute Assessment and Plan: Altered mental status in the setting of baseline dementia. Possibly secondary to polypharmacy vs dehydration and hypoglycemia CT head unremarkable. Has improved with IV fluids, glucose correction. Psychotropic meds have been held. No clear source of infection. Follow PT recs for discharge planning (2) COPD (chronic obstructive pulmonary disease) Current Visit: No Status: Chronic Assessment and Plan: History of COPD. No evidence of exacerbation at this time. We will continue home medications. (3) Hyponatremia Current Visit: Yes Status: Chronic Assessment and Plan: Hyponatremia appears to be chronic with sodium values in the low 130s based on previous sodium assessments. However, her current value of 126 is the lowest. Patient received 2 fluid boluses of normal saline in the ED. Sodium has corrected this am (4) Fall Current Visit: Yes Status: Acute Assessment and Plan: Evidence of unwitnessed fall based on patient being found on the floor. Unclear duration. Patient appears to have a history of falls based on previous documentation. Initial CPK normal. Will continue with correction of Hyponatremia. PT consulted (5) Hypoglycemia Current Visit: Yes Status: Acute (6) DVT prophylaxis Current Visit: No Status: Acute Assessment and Plan: Patient on Xarelto. Will resume. - Time Spent with Patient Total time spent is greater than 50% in coordination of care (as documented) at patient's floor/unit and/or counseling patient: Internal Medicine: Result - Labs CBC & Chem 7: 02/03/18 01:47 02/03/18 01:47 Labs: Short CBC 02/02/18 02/03/18 Range/Units 21:04 01:47 WBC 5.4 4.8 (4.3-11.1) K/mcL Hgb 11.8 12.1 (11.5-15.4) g/dL Hct 34.4 L 36.3 (35.3-44.9) % Plt Count 213 225 (140-400) K/mcL Neutrophils # 3.2 2.6 (1.6-8.9) K/mcL BMP 02/02/18 02/02/18 02/03/18 21:04 21:04 01:47 Sodium 130 L 130 L 134 L Potassium 3.5 3.5 3.3 L Chloride 95 L 94 L 95 L Carbon Dioxide 30 H 30 H 31 H BUN 6 L 6 L 5 L Creatinine 0.54 L 0.56 L 0.63 Glucose 85 85 138 H Calcium 8.8 8.7 8.9 Cardiac Enzymes 02/02/18 Range/Units 21:04 Troponin I < 0.03 (< 0.04) ng/mL Liver Function 02/02/18 02/03/18 Range/Units 21:04 01:47 Total Bilirubin 0.6 0.6 (0.3-1.0) mg/dL AST 14 15 (13-39) Units/L ALT 7 6 L (7-52) Units/L Alkaline Phosphatase 80 84 (34-104) Units/L Albumin 2.9 L 3.1 L (3.5-5.7) g/dL - ABG Interpretation ABG results: ABG ABG pH 7.40 pH Units (7.32-7.45) 02/02/18 22:54 ABG pCO2 50 mmHg (35-45) H 02/02/18 22:54 ABG pO2 73 mmHg (85-104) L 02/02/18 22:54 ABG O2 Saturation 94 % (95-98) L 02/02/18 22:54 PT/INR, D-dimer PT 12.7 Seconds (9.4-12.1) H 02/03/18 01:47 - VTE Documentation of Mechanical Device: Intermittent pneumatic compression device Consult Discharge Plan - Plan Referrals: Allyson Bernstein MD [Primary Care Provider] - (1) Altered mental status Qualifiers: Altered mental status type: unspecified Qualified Code(s): R41.82 - Altered mental status, unspecified (2) COPD (chronic obstructive pulmonary disease) Qualifiers: COPD type: chronic bronchitis Chronic bronchitis type: simple Qualified Code (s): J41.0 - Simple chronic bronchitis
[2018-02-03] MEDS: Furosemide 20 MG TABLET PO SCH (09:03)
[2018-02-03] MEDS: Potassium Chloride Elixir 20 MEQ/15 ML UDC PO SCH ×2 (09:03→12:06)
[2018-02-03] MEDS: *HR* Rivaroxaban 10 MG TABLET PO SCH (20:59)
--- NOTE | 2018-02-04 08:06 | Internal Med Progress Note ---
Hospitalist Progress Note - Encounter Date of Encounter: 02/04/18 Time of Encounter: 08:15 - Exam Vitals: Temp Pulse Resp BP Pulse Ox 98.3 F 65 16 132/82 94 02/04/18 07:20 02/04/18 07:20 02/04/18 07:20 02/04/18 07:20 02/04/18 07:20 Exam: General: Somnolent arouses to sternal rubs Skin:Normal color, no rash, no lesions. HEENT:EOM, pinpoint pupils; dry oral mucosa Cardiovascular:Normal S1 & S2, no rubs, murmurs or gallops. No JVD. Pulse regular. Lungs:Normal breath sounds, no wheezes or crackles. Abdomen:Soft, non-tender, no rigidity. Extremities:No deformity, no edema or tenderness, no joint swelling or clubbing. Neurological: Somnolent. Arouses to sternal rub. Briefly follows commands. He is moving all 4 limbs. Pulses:Carotid and radial pulses normal +2. Rest of the physical exam is non contributory - Assessment and Plan (1) Altered mental status Current Visit: Yes Status: Acute Assessment and Plan: Altered mental status in the setting of baseline dementia. Possibly secondary to polypharmacy vs dehydration and hypoglycemia CT head unremarkable. Has improved with IV fluids, glucose correction. Psychotropic meds have been held. No clear source of infection. Follow PT recommend discharge to SNF. Social work consulted (2) COPD (chronic obstructive pulmonary disease) Current Visit: No Status: Chronic Assessment and Plan: History of COPD. No evidence of exacerbation at this time. We will continue home medications. (3) Hyponatremia Current Visit: Yes Status: Chronic Assessment and Plan: Hyponatremia appears to be chronic with sodium values in the low 130s based on previous sodium assessments. However, her current value of 126 is the lowest. Patient received 2 fluid boluses of normal saline in the ED. Sodium has corrected this am (4) Fall Current Visit: Yes Status: Acute Assessment and Plan: Evidence of unwitnessed fall based on patient being found on the floor. Unclear duration. Patient appears to have a history of falls based on previous documentation. Initial CPK normal. Will continue with correction of Hyponatremia. PT consulted and following. Plan for d/c to SNF (5) Hypoglycemia Current Visit: Yes Status: Acute Assessment and Plan: Resolved (6) DVT prophylaxis Current Visit: No Status: Acute Assessment and Plan: Patient on Xarelto. Will resume. - Time Spent with Patient Total time spent is greater than 50% in coordination of care (as documented) at patient's floor/unit and/or counseling patient: Internal Medicine: Result - Labs CBC & Chem 7: 02/03/18 01:47 02/03/18 01:47 - ABG Interpretation ABG results: ABG ABG pH 7.40 pH Units (7.32-7.45) 02/02/18 22:54 ABG pCO2 50 mmHg (35-45) H 02/02/18 22:54 ABG pO2 73 mmHg (85-104) L 02/02/18 22:54 ABG O2 Saturation 94 % (95-98) L 02/02/18 22:54 PT/INR, D-dimer PT 12.7 Seconds (9.4-12.1) H 02/03/18 01:47 - VTE Documentation of Mechanical Device: Intermittent pneumatic compression device Consult Discharge Plan - Plan Referrals: Allyson Bernstein MD [Primary Care Provider] - (1) Altered mental status Qualifiers: Altered mental status type: unspecified Qualified Code(s): R41.82 - Altered mental status, unspecified (2) COPD (chronic obstructive pulmonary disease) Qualifiers: COPD type: chronic bronchitis Chronic bronchitis type: simple Qualified Code (s): J41.0 - Simple chronic bronchitis (4) Fall Qualifiers: Encounter type: sequela Qualified Code(s): W19.XXXS - Unspecified fall, sequela
[2018-02-04] MEDS: Furosemide 20 MG TABLET PO SCH (08:18)
[2018-02-04] MEDS: Potassium Chloride Elixir 20 MEQ/15 ML UDC PO SCH ×2 (08:18→12:31)
[2018-02-04] MEDS ORDERED: Acetaminophen 325 MG TABLET PO PRN (15:38)
[2018-02-04] MEDS: *HR* Rivaroxaban 10 MG TABLET PO SCH (19:45)
[2018-02-05 06:25] LABS: BUN/Creatinine Ratio 10 (6-26); Blood Urea Nitrogen 7 mg/dL (8-23); Calcium 9.1 mg/dL (8.6-10.3); Carbon Dioxide 31 mEq/L (23-29); Chloride 94 mEq/L (98-107); Glucose 105 mg/dL (70-105); Osmolality,Calculated 268 (280-300); Potassium 3.9 mEq/L (3.5-5.1); Sodium 130 mEq/L (136-145); eGFR For Non-African Americans > 60 (> 60)
--- NOTE | 2018-02-05 08:01 | Internal Med Progress Note ---
Hospitalist Progress Note - Encounter Date of Encounter: 02/05/18 Time of Encounter: 08:00 - Exam Vitals: Temp Pulse Resp BP Pulse Ox 98.4 F 71 16 149/97 98 02/05/18 07:38 02/05/18 07:38 02/05/18 07:38 02/05/18 07:38 02/05/18 07:38 Exam: General: Somnolent arouses to sternal rubs Skin:Normal color, no rash, no lesions. HEENT:EOM, pinpoint pupils; dry oral mucosa Cardiovascular:Normal S1 & S2, no rubs, murmurs or gallops. No JVD. Pulse regular. Lungs:Normal breath sounds, no wheezes or crackles. Abdomen:Soft, non-tender, no rigidity. Extremities:No deformity, no edema or tenderness, no joint swelling or clubbing. Neurological: Somnolent. Arouses to sternal rub. Briefly follows commands. He is moving all 4 limbs. Pulses:Carotid and radial pulses normal +2. Rest of the physical exam is non contributory - Assessment and Plan (1) Altered mental status Current Visit: Yes Status: Acute Assessment and Plan: Altered mental status in the setting of baseline dementia. Likely secondary to dehydration and hypoglycemia. Patient has improved on this admission CT head unremarkable. Has improved with IV fluids, glucose correction. Will restart home dementia and depression meds and monitor Follow PT recommend discharge to SNF. Social work consulted (2) COPD (chronic obstructive pulmonary disease) Current Visit: No Status: Chronic Assessment and Plan: History of COPD. No evidence of exacerbation at this time. We will continue home medications. (3) Hyponatremia Current Visit: Yes Status: Chronic Assessment and Plan: Hyponatremia appears to be chronic with sodium values in the low 130s based on previous sodium assessments. However, her current value of 126 is the lowest. Patient received 2 fluid boluses of normal saline in the ED. Sodium has corrected this am (4) Fall Current Visit: Yes Status: Acute Assessment and Plan: Evidence of unwitnessed fall based on patient being found on the floor. Unclear duration. Patient appears to have a history of falls based on previous documentation. Initial CPK normal. Will continue with correction of Hyponatremia. PT consulted and following. Plan for d/c to SNF (5) Hypoglycemia Current Visit: Yes Status: Acute Assessment and Plan: Resolved (6) Seizure Current Visit: Yes Status: Acute Assessment and Plan: Continue depakote (7) DVT prophylaxis Current Visit: No Status: Acute Assessment and Plan: Patient on Xarelto. Will resume. - Time Spent with Patient Total time spent is greater than 50% in coordination of care (as documented) at patient's floor/unit and/or counseling patient: Internal Medicine: Result - Labs CBC & Chem 7: 02/03/18 01:47 02/05/18 05:24 Labs: BMP 02/05/18 05:24 Sodium 130 L Potassium 3.9 Chloride 94 L Carbon Dioxide 31 H BUN 7 L Creatinine 0.68 Glucose 105 Calcium 9.1 - ABG Interpretation ABG results: ABG ABG pH 7.40 pH Units (7.32-7.45) 02/02/18 22:54 ABG pCO2 50 mmHg (35-45) H 02/02/18 22:54 ABG pO2 73 mmHg (85-104) L 02/02/18 22:54 ABG O2 Saturation 94 % (95-98) L 02/02/18 22:54 PT/INR, D-dimer PT 12.7 Seconds (9.4-12.1) H 02/03/18 01:47 - VTE Documentation of Mechanical Device: Intermittent pneumatic compression device Consult Discharge Plan - Plan Referrals: Allyson Bernstein MD [Primary Care Provider] - (1) Altered mental status Qualifiers: Altered mental status type: unspecified Qualified Code(s): R41.82 - Altered mental status, unspecified (2) COPD (chronic obstructive pulmonary disease) Qualifiers: COPD type: chronic bronchitis Chronic bronchitis type: simple Qualified Code (s): J41.0 - Simple chronic bronchitis (4) Fall Qualifiers: Encounter type: sequela Qualified Code(s): W19.XXXS - Unspecified fall, sequela
[2018-02-05] MEDS: Divalproex Sodium 125 MG CAPSULE PO SCH ×2 (08:51→22:51)
[2018-02-05] MEDS: Furosemide 20 MG TABLET PO SCH (08:51)
[2018-02-05] MEDS: OLANZapine 5 MG TAB.RAPDIS PO SCH (08:51)
--- NOTE | 2018-02-05 13:59 | Electrocardiograph Report ---
[place] [id number] Test Date: 2018-02-02 Pat Name: Aliyah Yusuf Department: EXAMC2 Room: 3A21 Gender: F Service Girl: : 1945 Requested By: Leoncio Brown Order Number: [id number] Reading MD: Darvin Eduardo Measurements Intervals [place] Rate: 67 P: [place]: QRS: 27 QRSD: 81 T: 73 QT: 406 QTc: 429 Interpretive Statements Atrial fibrillation Possible anteroseptal infarct, old Electronically Signed On 02-05-2018 13:58:00 EDT by Darvin Eduardo
--- NOTE | 2018-02-05 14:30 | Electrocardiograph Report ---
[place] [id number] Test Date: 2018-02-02 Pat Name: Aliyah Yusuf Department: 115 Room: 3A21 Gender: F Stable Cleaner: : 1945 Requested By: Beverly Garcia Order Number: [id number] Reading MD: Darvin Eduardo Measurements Intervals [place] Rate: 59 P: [place]: 0 QRS: 35 QRSD: 79 T: 58 QT: 470 QTc: 469 Interpretive Statements ATRIAL FIBRILLATION WITH SLOW VENTRICULAR RESPONSE SEPTAL MYOCARDIAL INFARCTION, PROBABLY OLD Electronically Signed On 02-05-2018 14:28:46 EDT by Darvin Eduardo
[2018-02-05] MEDS: *HR* Rivaroxaban 10 MG TABLET PO SCH (22:52)
[2018-02-06 05:46] LABS: BUN/Creatinine Ratio 10 (6-26); Blood Urea Nitrogen 6 mg/dL (8-23); Carbon Dioxide 30 mEq/L (23-29); Chloride 93 mEq/L (98-107); Glucose 95 mg/dL (70-105); Osmolality,Calculated 265 (280-300); Potassium 3.9 mEq/L (3.5-5.1); Sodium 129 mEq/L (136-145); eGFR For Non-African Americans > 60 (> 60)
--- NOTE | 2018-02-06 08:29 | Internal Med Progress Note ---
Hospitalist Progress Note - Encounter Date of Encounter: 02/06/18 Time of Encounter: 08:27 - Subjective Interval History: Patient with history of CVA, COPD, PVD, dementia. Patient admitted with mental status changes appears due to dehydration and hypoglycemic episode Today patient is awake alert oriented to place , person and some current event no acute issues . per nurse awaiting placement or possible discharge home with home health care. - Exam Vitals: Temp Pulse Resp BP Pulse Ox 98.2 F 68 16 153/80 94 02/06/18 06:57 02/06/18 06:57 02/06/18 06:57 02/06/18 06:57 02/06/18 06:57 Exam: General: Somnolent arouses to sternal rubs Skin:Normal color, no rash, no lesions. HEENT:EOM, pinpoint pupils; dry oral mucosa Cardiovascular:Normal S1 & S2, no rubs, murmurs or gallops. No JVD. Pulse regular. Lungs:Normal breath sounds, no wheezes or crackles. Abdomen:Soft, non-tender, no rigidity. Extremities:No deformity, no edema or tenderness, no joint swelling or clubbing. Neurological: Somnolent. Arouses to sternal rub. Briefly follows commands. He is moving all 4 limbs. Pulses:Carotid and radial pulses normal +2. Rest of the physical exam is non contributory - Assessment and Plan (1) COPD (chronic obstructive pulmonary disease) Current Visit: No Status: Chronic Assessment and Plan: Currently no acute wheezing and no exacerbation (2) Hyponatremia Current Visit: Yes Status: Chronic Assessment and Plan: Chronic and stable sodium level (3) Altered mental status Current Visit: Yes Status: Acute Assessment and Plan: Appears very likely due to dehydration and hypoglycemic episode patient mental status is not back to baseline (4) Fall Current Visit: Yes Status: Acute Assessment and Plan: Appear to be recurrent and plan is for placement home with home health care (5) Hypoglycemia Current Visit: Yes Status: Resolved Assessment and Plan: Resolved - Time Spent with Patient Total time spent is greater than 50% in coordination of care (as documented) at patient's floor/unit and/or counseling patient: Internal Medicine: Result - Labs CBC & Chem 7: 02/03/18 01:47 02/06/18 04:33 Labs: BMP 02/06/18 04:33 Sodium 129 L Potassium 3.9 Chloride 93 L Carbon Dioxide 30 H BUN 6 L Creatinine 0.63 Glucose 95 Calcium 9.0 - ABG Interpretation ABG results: ABG ABG pH 7.40 pH Units (7.32-7.45) 02/02/18 22:54 ABG pCO2 50 mmHg (35-45) H 02/02/18 22:54 ABG pO2 73 mmHg (85-104) L 02/02/18 22:54 ABG O2 Saturation 94 % (95-98) L 02/02/18 22:54 PT/INR, D-dimer PT 12.7 Seconds (9.4-12.1) H 02/03/18 01:47 - VTE Documentation of Mechanical Device: Intermittent pneumatic compression device Consult Discharge Plan - Plan Referrals: Allyson Bernstein MD [Primary Care Provider] - (1) COPD (chronic obstructive pulmonary disease) Qualifiers: COPD type: chronic bronchitis Chronic bronchitis type: simple Qualified Code (s): J41.0 - Simple chronic bronchitis (3) Altered mental status Qualifiers: Altered mental status type: unspecified Qualified Code(s): R41.82 - Altered mental status, unspecified (4) Fall Qualifiers: Encounter type: sequela Qualified Code(s): W19.XXXS - Unspecified fall, sequela
[2018-02-06] MEDS: Furosemide 20 MG TABLET PO SCH (09:10)
[2018-02-06] MEDS: Divalproex Sodium 125 MG CAPSULE PO SCH ×2 (09:10→21:37)
[2018-02-06] MEDS: OLANZapine 5 MG TAB.RAPDIS PO SCH (09:10)
[2018-02-06] MEDS: *HR* Rivaroxaban 10 MG TABLET PO SCH (21:36)
[2018-02-07 04:05] LABS: Hematocrit 29.7 % (35.3-44.9); Mean Corpuscular Hemoglobin 30.7 pg (28.0-33.3); Mean Corpuscular Volume 90.3 fL (83.0-100.0); Mean Platelet Volume 10.6 fL (9.4-12.4); Platelet Count 229 K/mcL (140-400); Red Blood Count 3.29 M/mcL (3.82-4.97); Red Cell Distribution Width 14.4 % (11.5-14.5)
[2018-02-07 04:08] LABS: Hemoglobin 10.1 g/dL (11.5-15.4)
--- NOTE | 2018-02-07 07:40 | Internal Med Progress Note ---
Hospitalist Progress Note - Encounter Date of Encounter: 02/07/18 Time of Encounter: 07:41 - Subjective Interval History: Patient with history of CVA, COPD, PVD, dementia. Patient admitted with mental status changes appears due to dehydration and hypoglycemic episode Today patient is awake alert oriented to place , person and some current event no acute issues . per nurse awaiting placement or possible discharge home with home health care. 02/07 Patient seen and examined no new complaints says she feels fine still waiting for tradition for approval for discharge - Exam Vitals: Temp Pulse Resp BP Pulse Ox 97.8 F 70 16 104/73 96 02/07/18 07:27 02/07/18 07:27 02/07/18 07:27 02/07/18 07:27 02/07/18 07:27 Exam: General: Somnolent arouses to sternal rubs Skin:Normal color, no rash, no lesions. HEENT:EOM, pinpoint pupils; dry oral mucosa Cardiovascular:Normal S1 & S2, no rubs, murmurs or gallops. No JVD. Pulse regular. Lungs:Normal breath sounds, no wheezes or crackles. Abdomen:Soft, non-tender, no rigidity. Extremities:No deformity, no edema or tenderness, no joint swelling or clubbing. Neurological: Somnolent. Arouses to sternal rub. Briefly follows commands. He is moving all 4 limbs. Pulses:Carotid and radial pulses normal +2. Rest of the physical exam is non contributory - Assessment and Plan (1) COPD (chronic obstructive pulmonary disease) Current Visit: No Status: Chronic Assessment and Plan: Clinically doing well no active wheezing stable from pulmonary standpoint (2) Hyponatremia Current Visit: Yes Status: Chronic Assessment and Plan: Chronic and stable no issue at present (3) Altered mental status Current Visit: Yes Status: Resolved Assessment and Plan: Mental status is back to patient's baseline (4) Fall Current Visit: Yes Status: Acute (5) Hypoglycemia Current Visit: Yes Status: Resolved Assessment and Plan: Resolved - Time Spent with Patient Total time spent is greater than 50% in coordination of care (as documented) at patient's floor/unit and/or counseling patient: Internal Medicine: Result - Labs CBC & Chem 7: 02/07/18 03:25 02/06/18 04:33 Labs: Short CBC 02/07/18 Range/Units 03:25 WBC 6.2 (4.3-11.1) K/mcL Hgb 10.1 L D (11.5-15.4) g/dL Hct 29.7 L (35.3-44.9) % Plt Count 229 (140-400) K/mcL - ABG Interpretation ABG results: ABG ABG pH 7.40 pH Units (7.32-7.45) 02/02/18 22:54 ABG pCO2 50 mmHg (35-45) H 02/02/18 22:54 ABG pO2 73 mmHg (85-104) L 02/02/18 22:54 ABG O2 Saturation 94 % (95-98) L 02/02/18 22:54 PT/INR, D-dimer PT 12.7 Seconds (9.4-12.1) H 02/03/18 01:47 - VTE Documentation of Mechanical Device: Intermittent pneumatic compression device Consult Discharge Plan - Plan Referrals: Allyson Bernstein MD [Primary Care Provider] - (1) COPD (chronic obstructive pulmonary disease) Qualifiers: COPD type: chronic bronchitis Chronic bronchitis type: simple Qualified Code (s): J41.0 - Simple chronic bronchitis (3) Altered mental status Qualifiers: Altered mental status type: unspecified Qualified Code(s): R41.82 - Altered mental status, unspecified (4) Fall Qualifiers: Encounter type: sequela Qualified Code(s): W19.XXXS - Unspecified fall, sequela
[2018-02-07] MEDS: OLANZapine 5 MG TAB.RAPDIS PO SCH (09:40)
[2018-02-07] MEDS: Furosemide 20 MG TABLET PO SCH (09:40)
[2018-02-07] MEDS: Divalproex Sodium 125 MG CAPSULE PO SCH ×2 (09:40→23:00)
[2018-02-07] MEDS: *HR* Rivaroxaban 10 MG TABLET PO SCH (23:00)
--- NOTE | 2018-02-08 07:56 | Internal Med Progress Note ---
Hospitalist Progress Note - Encounter Date of Encounter: 02/08/18 Time of Encounter: 07:50 - Exam Vitals: Temp Pulse Resp BP Pulse Ox 97.8 F 56 16 145/93 91 02/08/18 06:17 02/08/18 06:17 02/08/18 06:17 02/08/18 06:17 02/08/18 06:17 Exam: General: Somnolent arouses to sternal rubs Skin:Normal color, no rash, no lesions. HEENT:EOM, pinpoint pupils; dry oral mucosa Cardiovascular:Normal S1 & S2, no rubs, murmurs or gallops. No JVD. Pulse regular. Lungs:Normal breath sounds, no wheezes or crackles. Abdomen:Soft, non-tender, no rigidity. Extremities:No deformity, no edema or tenderness, no joint swelling or clubbing. Neurological: Somnolent. Arouses to sternal rub. Briefly follows commands. He is moving all 4 limbs. Pulses:Carotid and radial pulses normal +2. Rest of the physical exam is non contributory - Assessment and Plan (1) Altered mental status Current Visit: Yes Status: Resolved Assessment and Plan: Altered mental status in the setting of baseline dementia. Likely secondary to dehydration and hypoglycemia. Patient has improved on this admission CT head unremarkable. Has improved with IV fluids, glucose correction. Will restart home dementia and depression meds and monitor Follow PT recommend discharge to SNF. Social work consulted and working on placement (2) COPD (chronic obstructive pulmonary disease) Current Visit: No Status: Chronic Assessment and Plan: History of COPD. No evidence of exacerbation at this time. We will continue home medications. (3) Hyponatremia Current Visit: Yes Status: Chronic Assessment and Plan: Hyponatremia appears to be chronic with sodium values in the low 130s based on previous sodium assessments. However, her current value of 126 is the lowest. Patient received 2 fluid boluses of normal saline in the ED. Sodium has corrected this am (4) Fall Current Visit: Yes Status: Acute Assessment and Plan: Evidence of unwitnessed fall based on patient being found on the floor. Unclear duration. Patient appears to have a history of falls based on previous documentation. Initial CPK normal. Will continue with correction of Hyponatremia. PT consulted and following. Plan for d/c to SNF (5) Hypoglycemia Current Visit: Yes Status: Resolved Assessment and Plan: Resolved (6) Seizure Current Visit: Yes Status: Acute Assessment and Plan: Continue depakote (7) DVT prophylaxis Current Visit: No Status: Acute Assessment and Plan: Patient on Xarelto. Will resume. - Time Spent with Patient Total time spent is greater than 50% in coordination of care (as documented) at patient's floor/unit and/or counseling patient: Internal Medicine: Result - Labs CBC & Chem 7: 02/07/18 03:25 02/06/18 04:33 - ABG Interpretation ABG results: ABG ABG pH 7.40 pH Units (7.32-7.45) 02/02/18 22:54 ABG pCO2 50 mmHg (35-45) H 02/02/18 22:54 ABG pO2 73 mmHg (85-104) L 02/02/18 22:54 ABG O2 Saturation 94 % (95-98) L 02/02/18 22:54 PT/INR, D-dimer PT 12.7 Seconds (9.4-12.1) H 02/03/18 01:47 - VTE Documentation of Mechanical Device: Intermittent pneumatic compression device Consult Discharge Plan - Plan Referrals: Allyson Bernstein MD [Primary Care Provider] - (1) Altered mental status Qualifiers: Altered mental status type: unspecified Qualified Code(s): R41.82 - Altered mental status, unspecified (2) COPD (chronic obstructive pulmonary disease) Qualifiers: COPD type: chronic bronchitis Chronic bronchitis type: simple Qualified Code (s): J41.0 - Simple chronic bronchitis (4) Fall Qualifiers: Encounter type: sequela Qualified Code(s): W19.XXXS - Unspecified fall, sequela
[2018-02-08] MEDS: Divalproex Sodium 125 MG CAPSULE PO SCH (08:33)
[2018-02-08] MEDS: Furosemide 20 MG TABLET PO SCH (08:34)
[2018-02-08] MEDS: OLANZapine 5 MG TAB.RAPDIS PO SCH (08:34)
--- NOTE | 2018-02-08 09:23 | Discharge Summary ---
Orders not resulted at time of discharge: Pending orders 02/09/18 04:00 Basic Metabolic Panel AM 0400 Date of Encounter: 02/08/18 Time of Encounter: 09:30 - Discharge Diagnosis (1) Altered mental status Priority: Primary Status: Resolved Assessment and Plan: 72 year old female with a past medical history of CVA, COPD, peripheral vascular disease, dementia, iron deficiency anemia and history of falls who presents to the ED due to altered mental status. Per EMS report, the patient's daughter called after the patient was found on the floor for an unclear duration of time. Patient lives by herself. Patient does have history of baseline dementia but is more acutely altered per EMS. She was assessed with altered mental status in the setting of baseline dementia which was ffound to bel ikely secondary to dehydration and hypoglycemia. Patient improved on this admission with IV fluids and regular meals to correct her hypolycemia. She is also on multiple medications and polypharmacy was thought to be a possible etiology of her ams. Her home dementia meds which were initially held were restarted. She was however noted to be on depakote as a mood stabilizer and this has been discontinued. CT head was unremarkable. She was discharged to a SNF per PT recs Qualifiers: Altered mental status type: unspecified Qualified Code(s): R41.82 - Altered mental status, unspecified (2) COPD (chronic obstructive pulmonary disease) Priority: Secondary Status: Chronic Qualifiers: COPD type: chronic bronchitis Chronic bronchitis type: simple Qualified Code(s): J41.0 - Simple chronic bronchitis (3) Hyponatremia Priority: Secondary Status: Chronic (4) Fall Priority: Secondary Status: Acute Qualifiers: Encounter type: sequela Qualified Code(s): W19.XXXS - Unspecified fall, sequela (5) Hypoglycemia Priority: Secondary Status: Resolved (6) DVT prophylaxis Priority: Secondary Status: Acute Hospital course: Ms. Yusuf is a 72 year old female - Time Spent with Patient Total time spent providing and/or coordinating discharge services: - Discharge Medications Home Medications: Atorvastatin [Lipitor] 40 mg PO HS 02/27/17 [History] Clopidogrel [Plavix] 75 mg PO DAILY 02/27/17 [History] Donepezil HCl [Aricept] 5 mg PO HS 02/27/17 [History] Furosemide [Lasix] 20 mg PO DAILY 02/27/17 [History] Metoprolol [Lopressor] 25 mg PO BID 02/27/17 [History] Rivaroxaban [Xarelto] 20 mg PO HS 02/27/17 [History] Escitalopram [Lexapro] 10 mg PO DAILY 11/17/17 [History] Memantine [Namenda] 5 mg PO BID 11/17/17 [History] OLANZapine [Zyprexa] 5 mg PO DAILY 11/17/17 [History] Potassium Chloride [K-Tab ER] 20 meq PO DAILY 11/17/17 [History] Polyethylene Glycol 3350 [MiraLAX] 17 gm PO DAILY #30 powd.pack 11/20/17 [Rx] HYDROcodone/Acet 5/325 mg [Aldrich 5-325 mg] 1 tab PO DAILY PRN 02/02/18 [History] Allergies/Adverse Reactions: 3 Allergy/AdvReac Type Severity Reaction Status Date / Time aspirin AdvReac See Verified 11/17/17 17:36 Comments Penicillins [PCN] AdvReac See Verified 02/27/17 11:54 Comments Date of admission: 02/02/18 19:14 Primary care physician: Allyson Bernstein MD Consults: 02/02/18 22:31 Consult to Manager Baby [CONS] Routine Reason for SW Consult: Possible need for ECF 02/03/18 06:06 Consult to Pastoral Services [CONS] Routine Comment: 02/03/18 07:01 PT [Consult to Physical Therapy] [CONS] Routine Comment: Evaluate, develop and implement POC Reason for Consult: Repoorted history of falls. Patient found on the floor. Does patient have active BEDREST order?: No Is patient medically & hemodynamically stable?: Yes 02/03/18 13:15 OT [Consult to Occupational Therapy] [CONS] Routine Comment: Evaluate, develop and implement POC Reason for Consult: ECF Referral Does patient have active BEDREST order?: No Is patient medically & hemodynamically stable?: Yes Patient assessed for mobility or mobilized this visit?: Yes 02/03/18 19:22 Consult to Manager Baby [CONS] Routine Reason for SW Consult: ECF placement for rehab - Constitutional Vitals: Temp Pulse Resp BP Pulse Ox 97.8 F 56 16 145/93 91 02/08/18 06:17 02/08/18 06:17 02/08/18 06:17 02/08/18 06:17 02/08/18 08:00 Exam: General: Somnolent arouses to sternal rubs Skin:Normal color, no rash, no lesions. HEENT:EOM, pinpoint pupils; dry oral mucosa Cardiovascular:Normal S1 & S2, no rubs, murmurs or gallops. No JVD. Pulse regular. Lungs:Normal breath sounds, no wheezes or crackles. Abdomen:Soft, non-tender, no rigidity. Extremities:No deformity, no edema or tenderness, no joint swelling or clubbing. Neurological: Somnolent. Arouses to sternal rub. Briefly follows commands. He is moving all 4 limbs. Pulses:Carotid and radial pulses normal +2. Rest of the physical exam is non contributory - Patient Status Disposition: Transfer SNF Condition: Fair - Discharge Instructions Instructions: Fall Prevention (DC) Follow Up With: Allyson Bernstein MD [Primary Care Provider] - - VTE Documentation of Mechanical Device: Intermittent pneumatic compression device
--- NOTE | 2018-02-08 09:24 | Physician Discharge Referral ---
- Diagnosis (1) Altered mental status Priority: Primary Status: Resolved (2) COPD (chronic obstructive pulmonary disease) Priority: Secondary Status: Chronic (3) Hyponatremia Priority: Primary Status: Chronic (4) Fall Priority: Primary Status: Acute (5) Hypoglycemia Priority: Primary Status: Resolved (6) DVT prophylaxis Status: Acute - Transfer Medications Home Medications: Atorvastatin [Lipitor] 40 mg PO HS 02/27/17 [History] Clopidogrel [Plavix] 75 mg PO DAILY 02/27/17 [History] Donepezil HCl [Aricept] 5 mg PO HS 02/27/17 [History] Furosemide [Lasix] 20 mg PO DAILY 02/27/17 [History] Metoprolol [Lopressor] 25 mg PO BID 02/27/17 [History] Rivaroxaban [Xarelto] 20 mg PO HS 02/27/17 [History] Escitalopram [Lexapro] 10 mg PO DAILY 11/17/17 [History] Memantine [Namenda] 5 mg PO BID 11/17/17 [History] OLANZapine [Zyprexa] 5 mg PO DAILY 11/17/17 [History] Potassium Chloride [K-Tab ER] 20 meq PO DAILY 11/17/17 [History] Polyethylene Glycol 3350 [MiraLAX] 17 gm PO DAILY #30 powd.pack 11/20/17 [Rx] HYDROcodone/Acet 5/325 mg [[place] 5-325 mg] 1 tab PO DAILY PRN 02/02/18 [History] Allergies/Adverse Reactions: 3 Allergy/AdvReac Type Severity Reaction Status Date / Time aspirin AdvReac See Verified 11/17/17 17:36 Comments Penicillins [PCN] AdvReac See Verified 02/27/17 11:54 Comments - Respiratory Orders Smoking Cessation: Smoking cessation has been advised. For more information, call the [place] Tobacco Quit Line at 8-184-LVRY-NOW. CERTIFICATION: I certify that the transfer of the above named patient to an Extended Care Facility is necessary for the continuing treatment of the diagnosis listed. The above information is true and accurate reflection of patient's current condition. Confidential - Redisclosure prohibited without a patient's written consent.
[2018-02-08 10:57] VITALS: BP 126/90
== END 2018-02-08 13:21 | DRG 641 ==
LOC: EMEROOARM 16:31 → 3ANU 19:14
PROVIDERS: ADMIT Internal Medicine; ATTEND Internal Medicine